=== PATIENT | male | born 1965 | race African-American/Black ===

== ENCOUNTER → 2017-03-01 | Outpatient (CLI) | payer BC, OTHER ==
[~2017-03-01] MED LIST: ACET-1256 PO; ACET325T95 PO; CLC100 PO; ENOX40IN SQ; GABA800T PO; LISI-461 PO; MISC-573; MORP1TAB12 PO; MORP30TA PO; OXYSR/10 PO; WARF2TAB PO
== END | disposition home or self-care (01) ==
LOC: C.RDSM 13:30
PROVIDERS: ATTEND Physical Medicine & Rehabilitation Sports Medicine
DX: Z96.651 Presence of right artificial knee joint (principal)

== ENCOUNTER 2017-04-02 20:40 | Inpatient (IN) | payer BC ==
[~2017-04-02] VITALS: Ht 182.9 cm; Wt 104.0 kg
[~2017-04-02 20:40] MED LIST changes: -ACET325T95 PO; -CLC100 PO; -MORP1TAB12 PO; -MORP30TA PO
[2017-04-02] MEDS ORDERED: ALBUT/IPRATROP 3MG/0.5MG NEB 3 ML VIAL INH STA (20:56)
--- NOTE | 2017-04-02 21:25 | DIAGNOSTIC IMAGING REPORT ---
CHEST ONE VIEW PORTABLE CLINICAL HISTORY: Respiratory distress. Dyspnea. COMPARISON STUDY: Chest radiograph August 14, 2015. FINDINGS: There is a large right pneumothorax. Right lung partial atelectasis is noted. This occupies greater than 50% of the right hemithorax. There is no left pneumothorax. Cardiac size is at the upper limits of normal. IMPRESSION: Large right pneumothorax. Findings discussed with Dr. Aguilar at time of dictation. Electronically signed by: Addi Gonzalez M.D. 04/02/2017 9:24 PM Dictated Date/Time: 04/02/2017 9:21 PM
[2017-04-02 21:34] LABS: BASO % 0.4 %; BASO ABS # 0.03 K/uL (0-0.2); COMPLETE YES; EOS % 3.7 %; HEMATOCRIT 36.5 % (42-52); IG% 0.1 %; LYMPH % 35.4 %; LYMPH ABS # 2.69 K/uL (1.2-3.4); MEAN CELL VOLUME 81.8 fL (80-100); MEAN CORPUSCULAR HEMOGLOBIN 28.3 pg (25-34); MEAN CORPUSCULAR HGB CONC 34.5 g/dl (32-36); MEAN PLATELET VOLUME 9.4 fL (7.4-10.4); MONO % 6.9 %; NEUT % 53.5 %; PLATELET COUNT 307 K/uL (130-400); RED BLOOD COUNT 4.46 M/uL (4.7-6.1); WHITE BLOOD COUNT 7.59 K/uL (4.8-10.8)
[2017-04-02 21:43] LABS: URINE APPEARANCE CLEAR (CLEAR); URINE BILIRUBIN NEG (NEG); URINE COLOR YELLOW; URINE NITRITE NEG (NEG); URINE SPECIFIC GRAVITY 1.022 (1.000-1.030); UROBILINOGEN NEG (NEG)
[2017-04-02 21:44] LABS: MANUAL MICROSCOPIC REQUIRED? NO; REVIEW REQ? NO
[2017-04-02 21:48] LABS: PROTHROMBIN TIME (PATIENT) 10.6 SECONDS (9.0-12.0)
[2017-04-02 21:49] LABS: ALT/SGPT 41 U/L (12-78); BLOOD UREA NITROGEN 16 mg/dl (7-18); BUN/CREATININE RATIO 14.8 (10-20); CALCIUM 8.3 mg/dl (8.5-10.1); CARBON DIOXIDE 25 mmol/L (21-32); CHLORIDE 108 mmol/L (98-107); GLUCOSE 94 mg/dl (70-99); SODIUM 140 mmol/L (136-145)
[2017-04-02] MEDS ORDERED: MORP30TA PO (22:01)
[2017-04-02 22:03] LABS: ALB/GLOB RATIO 0.9 (0.9-2); ALKALINE PHOSPHATASE 68 U/L (45-117); AST/SGOT 30 U/L (15-37); CKMB/CK RATIO 0.8 (0-3.0)
[2017-04-02] MEDS ORDERED: MORP1TAB12 PO (22:06)
[2017-04-02] MEDS ORDERED: FENTANYL CITRATE INJ 50 MCG/1 ML 2 ML VIAL ONE (23:40)
[2017-04-02] MEDS ORDERED: FENTANYL CITRATE INJ 50 MCG/1 ML 2 ML VIAL IV PRN (23:45)
[2017-04-03] MEDS ORDERED: LIDOCAINE HCL 1% 20 ML VIAL ONE (00:24)
[2017-04-03] MEDS ORDERED: HYDROmorphone INJ 1 MG/ML SYR IV PRN (01:00)
[2017-04-03] MEDS ORDERED: NURSING VERBAL MED ORDER SCH (01:15)
--- NOTE | 2017-04-03 01:17 | DIAGNOSTIC IMAGING REPORT ---
ADDENDUM ADDENDUM: There is a small right apical pneumothorax. Electronically signed by: Armando Perry M.D. 04/03/2017 9:02 AM Dictated Date/Time: 04/03/2017 9:01 AM ORIGINAL REPORT SINGLE VIEW CHEST CLINICAL HISTORY: Status post chest tube placement. FINDINGS: An AP, portable, upright chest radiograph is compared to study dated 04/02/2017. The examination is degraded by portable technique and patient rotation. The heart is mildly enlarged and there is atherosclerotic calcification of the thoracic aorta. The pulmonary vasculature is noncongested. A right-sided chest tube has been placed. No residual pneumothorax is identified. Pleural effusion and atelectasis is seen at the right lung base. The left lung is grossly clear. The bony thorax is grossly intact. Mild subcutaneous emphysema is present along the right chest wall. IMPRESSION: 1. A right-sided chest tube has been placed. No residual right pneumothorax is seen. 2. There is a trace right pleural effusion with right basilar atelectasis. 3. The left lung appears clear. Electronically signed by: Armando Perry M.D. 04/03/2017 1:16 AM Dictated Date/Time: 04/03/2017 1:14 AM
[2017-04-03] MEDS ORDERED: OXYCODONE/ACETAMINOPHEN 5-325 TAB PO PRN (01:45)
[2017-04-03 01:50] VITALS: Ht 182.9 cm; Wt 104.0 kg
[2017-04-03 01:58] VITALS: BP 127/80; PULSE 73; TEMP 36.8; O2SAT 96
--- NOTE | 2017-04-03 03:08 | EMERGENCY ROOM VISIT NOTE ---
History Report prepared by Toyin: Carlota Peng Under the Supervision of: Dr. Charanjit Aguilar M.D. First contact with patient: 20:51 Chief Complaint: RESPIRATORY PROBLEMS Stated Complaint: HARD TO BREATH History of Present Illness The patient is a 52 year old male who presents to the Emergency Room with complaints of constant respiratory problems beginning 1 week ago. 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 He reports having pain in the epigastric region and feels as if "there is something stuck in his chest." He states that he took Robitussin for his pain to no relief. The patient states that he had diarrhea twice. He denies any recent travel. He reports no family history of heart problems, lung problems, or clots. The patient states that he takes Oxycodone and Gabapentin for knee and back pain, as well as Morphine for back pain. He also takes Lisinopril for hypertension. Pt denies LOC, headache, fevers, chills , diaphoresis, visual changes, neck pain, chest pain, nausea, vomiting, back pain, melena, hematochezia, numbness, weakness, lymphadenopathy, rash, or other complaints. Source of History: patient Onset: 1 week ago Position: other (global) Quality: other (respiratory problems) Timing: constant Associated Symptoms: + diarrhea Review of Systems See HPI for pertinent positives and negatives. A total of ten systems were reviewed and were otherwise negative. Past Medical & Surgical Medical Problems: (1) Herniated disc (2) Hypertension (3) Lumbar disc herniation with radiculopathy (4) Right knee DJD Surgical Problems: (1) S/P knee replacement Family History Sickle cell trait Social History Smoking Status: Former Smoker Marital Status: Housing Status: lives with family Current/Historical Medications Scheduled Gabapentin (Neurontin), 800 MG PO TID Lisinopril (Lisinopril), 10 MG PO QAM Morphine Sulfate (Morphine Sulfate Er), 30 MG PO Q12 Oxycodone HCl (Oxycontin), 10 MG PO BID Allergies Coded Allergies: No Known Allergies (Unverified , 04/02/17) Physical Exam Vital Signs Date Time Temp Pulse Resp B/P (MAP) Pulse Ox O2 Delivery O2 Flow Rate FiO2 04/03/17 00:46 55 20 149/98 97 Nasal Cannula 3.0 04/03/17 00:10 52 04/02/17 22:22 63 21 131/87 100 Room Air 04/02/17 21:47 63 20 142/93 100 Non-Rebreather 15.0 04/02/17 21:01 97 Room Air 04/02/17 21:01 97 Room Air 04/02/17 21:01 97 Room Air 04/02/17 20:59 73 04/02/17 20:42 36.6 77 18 158/93 96 Room Air Physical Exam GENERAL: Awake, alert, well-appearing, in no distress HENT: Normocephalic, atraumatic. Oropharynx unremarkable. EYES: Normal conjunctiva. Sclera non-icteric. NECK: Supple. No nuchal rigidity. FROM. No JVD. RESPIRATORY: Clear to auscultation. CARDIAC: Regular rate, normal rhythm. Extremities warm and well perfused. Pulses equal. ABDOMEN: Soft, non-distended. Epigastric tenderness. Low anterior rib tenderness. No rebound or guarding. No masses. RECTAL: Deferred. MUSCULOSKELETAL: Chest examination reveals no tenderness. The back is symmetrical on inspection without obvious abnormality. There is no CVA tenderness to palpation. No joint edema. LOWER EXTREMITIES: Calves are equal size bilaterally and non-tender. No edema. No discoloration. NEURO: Normal sensorium. No sensory or motor deficits noted. SKIN: No rash or jaundice noted. Medical Decision & Procedures ER Provider Diagnostic Interpretation: X-ray: Per my interpretation, radiologist review. CHEST ONE VIEW PORTABLE CLINICAL HISTORY: Respiratory distress. Dyspnea. COMPARISON STUDY: Chest radiograph August 14, 2015. FINDINGS: There is a large right pneumothorax. Right lung partial atelectasis is noted. This occupies greater than 50% of the right hemithorax. There is no left pneumothorax. Cardiac size is at the upper limits of normal. IMPRESSION: Large right pneumothorax. Findings discussed with Dr. Aguilar at time of dictation. Electronically signed by: Addi Gonzalez M.D. 04/02/2017 9:24 PM Dictated Date/Time: 04/02/2017 9:21 PM X-ray: Per my interpretation, radiologist review. SINGLE VIEW CHEST CLINICAL HISTORY: Status post chest tube placement. FINDINGS: An AP, portable, upright chest radiograph is compared to study dated 04/02/2017. The examination is degraded by portable technique and patient rotation. The heart is mildly enlarged and there is atherosclerotic calcification of the thoracic aorta. The pulmonary vasculature is noncongested. A right-sided chest tube has been placed. No residual pneumothorax is identified. Pleural effusion and atelectasis is seen at the right lung base. The left lung is grossly clear. The bony thorax is grossly intact. Mild subcutaneous emphysema is present along the right chest wall. IMPRESSION: 1. A right-sided chest tube has been placed. No residual right pneumothorax is seen. 2. There is a trace right pleural effusion with right basilar atelectasis. 3. The left lung appears clear. Electronically signed by: Armando Perry M.D. 04/03/2017 1:16 AM Dictated Date/Time: 04/03/2017 1:14 AM Laboratory Results 04/02/17 21:17 Red Blood Count 4.46, Mean Corpuscular Volume 81.8, Mean Corpuscular Hemoglobin 28.3, Mean Corpuscular Hemoglobin Concent 34.5, Mean Platelet Volume 9.4, Neutrophils (%) (Auto) 53.5, Lymphocytes (%) (Auto) 35.4, Monocytes (%) (Auto) 6.9, Eosinophils (%) (Auto) 3.7, Basophils (%) (Auto) 0.4, Neutrophils # (Auto) 4.06, Lymphocytes # (Auto) 2.69, Monocytes # (Auto) 0.52, Eosinophils # (Auto) 0.28, Basophils # (Auto) 0.03 04/02/17 21:17 Test 04/02/17 21:17 04/02/17 21:30 White Blood Count 7.59 K/uL (4.8-10.8) Red Blood Count 4.46 M/uL (4.7-6.1) Hemoglobin 12.6 g/dL (14.0-18.0) Hematocrit 36.5 % (42-52) Mean Corpuscular Volume 81.8 fL (80-100) Mean Corpuscular Hemoglobin 28.3 pg (25-34) Mean Corpuscular Hemoglobin Concent 34.5 g/dl (32-36) Platelet Count 307 K/uL (130-400) Mean Platelet Volume 9.4 fL (7.4-10.4) Neutrophils (%) (Auto) 53.5 % Lymphocytes (%) (Auto) 35.4 % Monocytes (%) (Auto) 6.9 % Eosinophils (%) (Auto) 3.7 % Basophils (%) (Auto) 0.4 % Neutrophils # (Auto) 4.06 K/uL (1.4-6.5) Lymphocytes # (Auto) 2.69 K/uL (1.2-3.4) Monocytes # (Auto) 0.52 K/uL (0.11-0.59) Eosinophils # (Auto) 0.28 K/uL (0-0.5) Basophils # (Auto) 0.03 K/uL (0-0.2) RDW Standard Deviation 40.9 fL (36.4-46.3) RDW Coefficient of Variation 13.5 % (11.5-14.5) Immature Granulocyte % (Auto) 0.1 % Immature Granulocyte # (Auto) 0.01 K/uL (0.00-0.02) Prothrombin Time 10.6 SECONDS (9.0-12.0) Prothromb Time International Ratio 1.0 (0.9-1.1) Activated Partial Thromboplast Time 24.7 SECONDS (21.0-31.0) Partial Thromboplastin Ratio 1.0 Anion Gap 7.0 mmol/L (3-11) Est Creatinine Clear Calc Drug Dose 100.2 ml/min Estimated GFR () 90.2 Estimated GFR (Non- 77.9 BUN/Creatinine Ratio 14.8 (10-20) Calcium Level 8.3 mg/dl (8.5-10.1) Total Bilirubin 0.2 mg/dl (0.2-1) Aspartate Amino Transf (AST/SGOT) 30 U/L (15-37) Alanine Aminotransferase (ALT/SGPT) 41 U/L (12-78) Alkaline Phosphatase 68 U/L (45-117) Total Creatine Kinase 1009 U/L (39-308) Creatine Kinase MB 8.4 ng/ml (0.5-3.6) Creatine Kinase MB Ratio 0.8 (0-3.0) Troponin I < 0.015 ng/ml (0-0.045) Pro-B-Type Natriuretic Peptide 67 pg/ml (0-900) Total Protein 7.3 gm/dl (6.4-8.2) Albumin 3.5 gm/dl (3.4-5.0) Globulin 3.8 gm/dl (2.5-4.0) Albumin/Globulin Ratio 0.9 (0.9-2) Lipase 82 U/L (73-393) Urine Color YELLOW Urine Appearance CLEAR (CLEAR) Urine pH 5.0 (4.5-7.5) Urine Specific [place] 1.022 (1.000-1.030) Urine Protein NEG (NEG) Urine Glucose (UA) NEG (NEG) Urine Ketones NEG (NEG) Urine Occult Blood NEG (NEG) Urine Nitrite NEG (NEG) Urine Bilirubin NEG (NEG) Urine Urobilinogen NEG (NEG) Urine Leukocyte Esterase NEG (NEG) Laboratory results reviewed by me Medications Administered Medications (Trade) Dose Ordered Sig/[facility] Route Start Time Stop Time Status Last Admin Dose Admin Fentanyl Citrate (Fentanyl Inj) 100 mcg Q15M PRN IV 04/02/17 23:45 04/16/17 23:44 04/03/17 00:44 100 MCG Fentanyl Citrate (Fentanyl Inj) 100 mcg STK-MED ONCE .ROUTE 04/02/17 23:40 04/02/17 23:41 DC 04/02/17 00:10 100 MCG Hydromorphone HCl (Dilaudid Inj) 1 mg Q15M PRN IV 04/03/17 01:00 04/03/17 02:07 DC 04/03/17 00:57 1 MG Procedure Tube Thoracostomy Indication: Pneumothorax Written consent was obtained after the risks and benefits were explained, including but not limited to cardiac/liver/lung injury, bleeding, scarring, infection, pain, and bone/joint/nerve damage. At this time, the risks of the procedure are less than the risks of NOT performing the procedure. A time out was taken and the correct patient and site identified. The patient was prepped and draped in the standard surgical fashion. 1% lidocaine without epinephrine was infused over the right fifth intercostal space into the subcutaneous tissue. A 3 cm incision was made transversely in the mid axillary line over the fifth intercostal rib. Blunt dissection was done with a Julieta clamp to the area of the intercostal muscles; 1% lidocaine again was used for anesthesia in intercostal muscle and subpleural space. Blunt dissection was then done with the Julieta clamps into the pleural cavity over the rib. A brown of air was noted upon entering the pleural cavity. The pleural cavity was digitally inspected to confirm that the pleural cavity had been entered. A 28 Chinese thoracostomy tube was inserted in the superior/posterior portion of the pleural space. 1-0 silk suture was used to approximate the skin above the thoracostomy tube and then used to secure the thoracostomy tube. An occlusive dressing was then placed and the thoracostomy tube was hooked to the Pleur-evac suction. The patient tolerated the procedure well without complications. A postoperative x-ray was then performed which showed the thoracostomy tube in the correct position. ECG Indication: SOB/dyspnea Rate (beats per minute): 68 Rhythm: normal sinus Findings: no acute ischemic change, no ectopy ED Course 2054: The patient was evaluated in room C4. A complete history and physical exam was performed. 2055: Ordered Duoneb 3 ml INH. 2339: Ordered Fentanyl Inj 100 mcg. 2344: Ordered Fentanyl Inj 100 mcg IV. 23: Ordered Lidocaine HCl 20 ml. 99: Ordered Dilaudid Inj 1 mg IV. 104: Discussed the patient's case with Dr. Mahajan. The patient will be evaluated for further treatment and disposition. Medical Decision Medication Reconciliation: I attest that I have personally reviewed the patient' s current medication list Blood pressure screening: Patient was found to have an elevated blood pressure and was referred to their primary doctor for recheck and further treatment. Triage Nursing notes reviewed. The patient's presentation and history were concerning for breathing difficulty. Etiologies such as pneumonia, COPD, reactive airway disease, CHF, cardiac ischemia, pulmonary embolism, pneumothorax, musculoskeletal, infections, gastrointestinal, as well as others were entertained. Patient was evaluated. He noted difficulty breathing. His ECG was unremarkable. A portable chest x-ray was performed and revealed a right-sided pneumothorax. The patient has no prior history. He is hemodynamically stable. He was placed on a nonrebreather. The patient's blood work was unremarkable except for an elevation of his total CK. The patient was consented for chest tube placement. No one was internal salesperson for thoracic surgery this evening and I discussed proceeding with a chest tube. The patient was in agreement. This was performed as above and went very smoothly. There was a slight brown of air after the chest cavity was entered. The chest tube was placed in the standard fashion without a trocar. This was secured and dressed. The patient did receive fentanyl and Dilaudid for symptom control. He had some discomfort with lung re-expansion. Post procedure chest x-ray revealed the tube in good position. I did consult with general surgery, Dr. Mahajan as the patient will need to be admitted to the hospital. He did agree. The case discussed and diagnostics were reviewed including his elevated CK. He did admit the patient for further management of his spontaneous pneumothorax. Consults Time Called: 9 Consulting Physician: Dr. Scherer Returned Call: [phone] Discussed the patient's case. The patient will be evaluated for further treatment and disposition. Impression Primary Impression: Pneumothorax on right Additional Impression: Elevated creatine kinase Scribe Attestation The scribe's documentation has been prepared under my direction and personally reviewed by me in its entirety. I confirm that the note above accurately reflects all work, treatment, procedures, and medical decision making performed by me. Departure Information Dispostion Being Evaluated By Hospitalist Referrals No Doctor, Assigned (PCP) Patient Instructions My [facility] Problem Qualifiers
[2017-04-03] MEDS: MoRPHine SULFATE 4 MG/ML 1 ML CARP\\VIAL IV PRN ×4 (03:17→10:11)
[2017-04-03 07:26] VITALS: BP 127/76; PULSE 65; TEMP 36.6; O2SAT 95
[2017-04-03] MEDS: MoRPHine SULFATE CR 15 MG TAB (MS CONTIN) PO SCH ×2 (08:35→20:10)
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
[2017-04-03] MEDS ORDERED: LISINOPRIL 10 MG TAB PO SCH (09:00)
[2017-04-03] MEDS ORDERED: MoRPHine SULFATE CR 15 MG TAB (MS CONTIN) PO SCH (09:00)
[2017-04-03] MEDS ORDERED: GABAPENTIN 800 MG TAB PO SCH (09:00)
--- NOTE | 2017-04-03 09:02 | DIAGNOSTIC IMAGING REPORT ---
SINGLE VIEW CHEST CLINICAL HISTORY: Pneumothorax and chest tube. FINDINGS: An AP, portable, upright chest radiograph is compared to study performed earlier the same day 04/03/2017. The examination is degraded by portable technique and patient rotation. The heart is mildly enlarged and there is atherosclerotic calcification of the thoracic aorta. The pulmonary vasculature is noncongested. A right-sided chest tube has been placed. There is a small right apical pneumothorax. Pleural effusion and atelectasis are noted at the right lung base. There is left basilar atelectasis. The left lung is otherwise grossly clear. The bony thorax is grossly intact. Mild subcutaneous emphysema is present along the right chest wall. IMPRESSION: 1. A right-sided chest tube is unchanged in position. A small right atypical pneumothorax persists. 2. There is a trace right pleural effusion and bibasilar atelectasis. 3. The left lung appears clear. Electronically signed by: Armando Perry M.D. 04/03/2017 9:01 AM Dictated Date/Time: 04/03/2017 8:59 AM
[2017-04-03] MEDS ORDERED: NURSING VERBAL MED ORDER ONE (10:15)
[2017-04-03] MEDS ORDERED: KETOROLAC TROMETHAMINE 30 MG/ML VIAL ONE (10:17)
[2017-04-03] MEDS ORDERED: DIAZEPAM 5MG TAB PO PRN (10:30)
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
--- NOTE | 2017-04-03 11:21 | DIAGNOSTIC IMAGING REPORT ---
CT SCAN OF THE CHEST WITHOUT IV CONTRAST CLINICAL HISTORY: Pneumothorax and chest tube. Assess for bullous change. COMPARISON STUDY: Chest x-rays dated 04/03/2017 and 08/14/2015. TECHNIQUE: CT scan of the thorax was performed from the thoracic inlet to the upper abdomen. Images are reviewed in the axial, sagittal, and coronal planes. IV contrast was not administered for this examination as per the referring clinician. CT DOSE: 1083.12 mGy.cm FINDINGS: Thyroid: Imaged portions of the thyroid gland are normal in size and attenuation. Thoracic aorta: The thoracic aorta is normal in caliber and demonstrates standard 3-vessel arch anatomy. Heart: The heart is normal in size and without pericardial effusion. There are coronary artery calcifications. The pulmonary trunk is normal in caliber. Lungs and pleural spaces: A chest tube is present at the right apex. This enters between the right lateral fourth and fifth ribs, and there is associated subcutaneous emphysema along the right chest wall. There is emphysema with biapical bullous change. There is a small residual anterior right apical pneumothorax seen on image #114. A cavity at the right apex is indeterminant and may represent pneumothorax versus a bulla. A pneumothorax is favored, as there has been a radiographic change from the 2015 chest x-ray. Patchy airspace consolidation is identified in the right upper and right middle lobes. There is segmental atelectasis at the right lung base. Subsegmental atelectasis is seen at the left lung base. There is a trace right pleural effusion. The trachea and central airways are clear. Mediastinum: There is no mediastinal lymphadenopathy. Lynn: Not well assessed without IV contrast. Axillae: There is no axillary lymphadenopathy. Upper abdomen: Calcified gallstones are noted. Scattered subcentimeter hepatic hypodensities likely represent cysts but are too small for definitive characterization. Diverticula are noted in the partially imaged left colon. Skeletal structures: No lytic or blastic bony lesions are seen. Degenerative change is seen in the shoulders and thoracic spine. IMPRESSION: 1. Emphysema with biapical bullae. 2. A chest tube is present at the right apex. There is a small anterior right apical pneumothorax identified. An air cavity at the right apex could represent a bulla versus pneumothorax. A small pneumothorax is favored, as this represents a clear radiographic change when compared to the 08/14/2015 examination. 3. There is patchy groundglass consolidation seen in the right upper and right middle lobes. This could represent a mild infectious/inflammatory pneumonitis versus reexpansion edema. Clinical correlation will be required. 4. Segmental atelectasis is seen at the right lung base and there is subsegmental atelectasis at the left lung base. A trace right pleural effusion is noted. 5. Cholelithiasis. Electronically signed by: Armando Perry M.D. 04/03/2017 11:20 AM Dictated Date/Time: 04/03/2017 11:12 AM
[2017-04-03] MEDS: OXYCODONE HCL IR 5 MG TAB (IMMEDIATE RELEASE) PO PRN ×2 (13:37→23:37)
[2017-04-03] MEDS: GABAPENTIN 800 MG TAB PO SCH ×2 (13:38→21:00)
[2017-04-03] MEDS: ACETAMINOPHEN IV 1,000 MG in EMPTY BAG 0 ML IV SCH ×2 (13:39→21:49)
[2017-04-03 15:12] VITALS: BP 124/80; PULSE 68; TEMP 36.9; O2SAT 96
[2017-04-03] MEDS: KETOROLAC TROMETHAMINE 30 MG/ML VIAL IV PRN (16:28)
[2017-04-03 20:03] VITALS: BP 116/75; PULSE 73; TEMP 36.9; O2SAT 94
[2017-04-03 22:40] VITALS: BP 125/72; PULSE 60; TEMP 36.9; O2SAT 95
[2017-04-04] VITALS (9 sets, daily range): BP systolic 105–133; BP diastolic 66–91; PULSE 43–80; TEMP 36.3–37.1; O2SAT 93–98
[2017-04-04] MEDS: KETOROLAC TROMETHAMINE 30 MG/ML VIAL IV PRN ×2 (00:20→07:11)
[2017-04-04] MEDS: ACETAMINOPHEN IV 1,000 MG in EMPTY BAG 0 ML IV SCH ×3 (05:43→21:51)
[2017-04-04] MEDS: MoRPHine SULFATE CR 15 MG TAB (MS CONTIN) PO SCH ×2 (07:57→20:07)
[2017-04-04] MEDS: GABAPENTIN 800 MG TAB PO SCH ×3 (08:42→21:00)
--- NOTE | 2017-04-04 10:20 | Progress Note ---
Progress Note Date of Service Apr 04, 2017. Progress Note I had a long talk with Mr. Lai this morning. I also had a long conversation with the patient's over the telephone. His CT scan shows a large bulla in fairly localized bullous disease in the right apex. He has a very small air leak this morning. It was larger yesterday. We had a long discussion about management. My personal opinion and in a 52-year-old male with localized disease was apex is that a minimally invasive approach and excising these bulla would be our best option. We did discuss removing his chest tube and sending him home with his air leak has been resolved for 24-48 hours. I told him it would more likely be tomorrow or the day after the procedure his tube out. Taken to the operating room is a good chance we can get his tube out tomorrow and get him home. He discussed this in detail with his and with me would like to proceed with a thoracoscopic resection of his right apical blebs. We' re going to proceed with this later today. I manipulated his pain medicines yesterday and he has responded well with much less pain than he did yesterday. We will institute DVT prophylaxis.
[2017-04-04] MEDS ORDERED: MoRPHine SULFATE 4 MG/ML 1 ML CARP\\VIAL IM PRN (10:30)
[2017-04-04] MEDS ORDERED: LARYING-O-JET KIT (LTA) ONE ×2 (11:44)
[2017-04-04] MEDS ORDERED: PROPOFOL IV EMULSION 10 MG/ML 20 ML VIAL IV ONE ×2 (11:44→13:04)
[2017-04-04] MEDS ORDERED: LIDOCAINE HCL 2% 2 ML VIAL (20MG/ML) ONE (11:44)
[2017-04-04] MEDS ORDERED: ROCURONIUM BROMIDE 10 MG/ML 5 ML VIAL ONE ×2 (11:44→12:59)
[2017-04-04] MEDS ORDERED: ONDANSETRON INJ 2 MG/ML 2 ML VIAL ONE (11:44)
[2017-04-04] MEDS ORDERED: ONDANSETRON INJ 2 MG/ML 2 ML VIAL IV PRN ×2 (11:45→13:45)
[2017-04-04] MEDS ORDERED: MIDAZOLAM HCL 1 MG/ML 2ML VIAL ONE (11:45)
[2017-04-04] MEDS ORDERED: FENTANYL CITRATE INJ 50 MCG/1 ML 2 ML VIAL ONE (11:45)
[2017-04-04] MEDS ORDERED: EpHEDrine SULFATE INJ 50 MG/ML AMP IV PRN (11:45)
[2017-04-04] MEDS ORDERED: ATROPINE SULFATE 0.1 MG/ML 5ML SYR IV PRN (11:45)
[2017-04-04] MEDS ORDERED: SODIUM CHLORIDE 0.9% PF 50 ML VIAL ONE (12:02)
[2017-04-04] MEDS ORDERED: BUPIVACAINE LIPOSOME 1/3% 266 MG/20 ML VIAL INFIL ONE (12:02)
[2017-04-04] MEDS ORDERED: SUCCINYLCHOLINE CHLORIDE 20 MG/ML 10 ML VIAL IV ONE (12:59)
[2017-04-04] MEDS ORDERED: EpHEDrine SULFATE 50MG/5ML SYR ONE (12:59)
[2017-04-04] MEDS ORDERED: DEXAMETHASONE SOD INJ 4 MG/ML VIAL ONE (12:59)
[2017-04-04] MEDS ORDERED: PHENYLEPHRINE 100MCG/ML 5ML SYR ONE (12:59)
[2017-04-04] MEDS ORDERED: CEFAZOLIN SOD 1 GM VIAL ONE (13:02)
[2017-04-04] MEDS ORDERED: NEOSTIGMINE METHYLSULFATE 5 MG/5 ML SYR ONE (13:07)
[2017-04-04] MEDS ORDERED: GLYCOPYRROLATE INJ 0.2 MG/ML VIAL ONE (13:07)
[2017-04-04] MEDS: FENTANYL CITRATE INJ 50 MCG/1 ML 2 ML VIAL IV PRN ×4 (13:50→14:05)
[2017-04-04] MEDS: HYDROmorphone INJ 1 MG/ML SYR IV PRN ×4 (14:10→14:25)
--- NOTE | 2017-04-04 14:11 | DIAGNOSTIC IMAGING REPORT ---
CHEST ONE VIEW PORTABLE CLINICAL HISTORY: s/p bleb resection COMPARISON STUDY: 04/03/2017 FINDINGS: The right-sided chest tube is positioned more laterally. There is no pneumothorax. There is trace subcutaneous emphysema on the right. The heart is the upper limits of normal in size. There is no focal pulmonary consolidation. In the area of the previously identified loculated right apical pneumothorax versus apical bleb, there is soft tissue opacity. This likely represents fluid. IMPRESSION: Interval development of presumed fluid within the loculated right apical pneumothorax versus apical bleb. No evidence of acute parenchymal consolidation. Electronically signed by: Aleksandar Cruz M.D. 04/04/2017 2:10 PM Dictated Date/Time: 04/04/2017 2:01 PM
--- NOTE | 2017-04-04 14:15 | Anesthesiology Progress Note ---
Anesthesia Post Op Note Date & Time Apr 04, 2017 at 14:14 Vital Signs Pain Intensity: 5 Vital Signs Past 12 Hours Date Time Temp Pulse Resp B/P (MAP) Pulse Ox O2 Delivery O2 Flow Rate FiO2 04/04/17 14:00 65 17 131/79 100 Mask 10 04/04/17 13:54 36.3 69 14 124/76 99 Mask 10 04/04/17 07:45 Room Air 04/04/17 06:58 36.4 43 17 133/91 (105) 97 Room Air 04/04/17 04:00 36.8 63 20 105/71 (82) 93 Room Air Notes Mental Status: alert / awake / arousable, participated in evaluation Pt Amnestic to Procedure: Yes Nausea / Vomiting: adequately controlled Pain: adequately controlled, improving with treatment Airway Patency, RR, SpO2: stable & adequate BP & HR: stable & adequate Hydration State: stable & adequate Anesthetic Complications: no major complications apparent
--- NOTE | 2017-04-04 15:04 | [facility] Operative Report ---
Operative Report Date of Service Apr 04, 2017. Operative Report Preoperative diagnosis: Right apical blebs with spontaneous pneumothorax Postoperative diagnosis: Same Procedure: Right thoracoscopy with wedge resection right apical blebs Surgeon: Mike Braga M.D. FACS Travograph Operator surgeon: Giancarlo ALBRIGHT Anesthesia:Gen. anesthesia with endotracheal intubation using a single lumen tube Procedure: The patient was brought to the operating room placed in the supine position. Gen. anesthesia was induced and endotracheal intubation was performed with a single-lumen tube. Patient was then turned in the left lateral decubitus position carefully to avoid strain on his brachial plexus or his bony prominences. Appropriate timeout was called and prophylactic antibiotics given. His chest tube was removed from the right side and he was prepped and draped in usual sterile fashion. A 5 mm port was placed to the tip of the scapula area and upon entering the pleural cavity to be seen and there were no adhesions inferiorly but there was a band of adhesions from the apical blebs to the chest wall. Another 5 mm port was placed at about the fourth interspace and then a 12 mm port was placed seventh interspace anteriorly. CO2 was insufflated. I then grasped the lung with a a lung clamp and retracted and used the Harmonic scalpel to divide the adhesion. I was then able to pull the upper aspect of the apex down. An Endo ASHWINI stapler was placed through the 12 mm port and was fired several times removing generous portion of the the right upper lobe. This included the apical blebs The patient had small blebs diffusely that were not leaking air. These were located along the edge of the middle lobe as well as the upper lobe. There was no other adhesions and no masses noted. 266 mg Exparel mixed in 60 mL total with normal saline was injected from the second to the 11th interspace for an intercostal block under thoracoscopic guidance. The chest was filled with warm saline and the lung inflated and we saw no evidence of an air leak. A 24 Slovenian chest tube was placed in the anterior inferior thoracoscopy port and directed towards the apex. It was held in place with heavy silk suture. The 5 mm port incisions were closed with 4-0 Monocryl in a running continuous fashion. Patient had no air leak at the conclusion of the case. He tolerated it well. Transported to the postanesthesia care unit in stable condition. I attest to the content of the Intraoperative Record and any orders documented therein. Any exceptions are noted below.
[2017-04-04] MEDS: D5W AND 1/2NSS 1,000 ML IV SCH (15:12)
[2017-04-04] MEDS: DOCUSATE SODIUM 100 MG CAP PO SCH (21:00)
[2017-04-04] MEDS: METOCLOPRAMIDE HCL INJ 5 MG/ML 2 ML VIAL IV. SCH (22:16)
[2017-04-04] MEDS: CEFAZOLIN IV 2,000 MG in DEXTROSE 5% 50ML 100 ML IV SCH (22:16)
[2017-04-05] MEDS: D5W AND 1/2NSS 1,000 ML IV SCH (00:46)
[2017-04-05 03:06] VITALS: BP 109/67; PULSE 67; TEMP 36.8; O2SAT 99
[2017-04-05] MEDS: OXYCODONE HCL IR 5 MG TAB (IMMEDIATE RELEASE) PO PRN (04:35)
[2017-04-05] MEDS: KETOROLAC TROMETHAMINE 30 MG/ML VIAL IV PRN (05:24)
[2017-04-05] MEDS: METOCLOPRAMIDE HCL INJ 5 MG/ML 2 ML VIAL IV. SCH (05:58)
[2017-04-05] MEDS: ACETAMINOPHEN IV 1,000 MG in EMPTY BAG 0 ML IV SCH (06:05)
[2017-04-05] MEDS ORDERED: CLC100 PO (06:26)
[2017-04-05] MEDS: CEFAZOLIN IV 2,000 MG in DEXTROSE 5% 50ML 100 ML IV SCH (06:33)
[2017-04-05] MEDS ORDERED: OXYSR/10 PO (06:39)
[2017-04-05] MEDS ORDERED: ACET325T95 PO (06:39)
--- NOTE | 2017-04-05 06:43 | Discharge Instructions ---
Discharge Instructions Date of Service Apr 05, 2017. Admission Reason for Admission: Pneumothorax Discharge Discharge Diagnosis / Problem: Pneumothorax Discharge Goals Goal(s): Decrease discomfort, Improve function Activity Recommendations Activity Limitations: as noted below Lifting Limitations: none 1. Do not fly or SCUBA dive until cleared to do so by Dr. Braga. . Instructions / Follow-Up Instructions / Follow-Up 1. You may remove dressing on Tuesday, April 08, 2017, and shower thereafter. No tub baths. 2. Office appointment with Dr. Braga in 1 week. Office will call you with date and time and date of appointment. Go to hospital 1 hour before your appointment to have a chest x-ray taken. Current Hospital Diet Patient's current hospital diet: Regular Diet Discharge Diet Recommended Diet: Regular Diet Procedures Procedures Performed: Right Video-Assisted Thoracoscopy with Apical Bleb Resection Pending Studies Studies pending at discharge: no Medical Emergencies . Who to Call and When: Medical Emergencies: If at any time you feel your situation is an emergency, please call 911 immediately. . Non-Emergent Contact Non-Emergency issues call your: Surgeon Call Non-Emergent contact if: you have a fever, your pain is not controlled, wound has increased drainage . "Provider Documentation" section prepared by Kaleb Royal. . VTE Core Measure Inpt VTE Proph given/why not?: Enoxaparin (Lovenox)SQ
[2017-04-05 07:15] VITALS: O2SAT 99
[2017-04-05 07:37] VITALS: BP 118/75; PULSE 60; TEMP 36.8; O2SAT 96
--- NOTE | 2017-04-05 07:56 | Discharge Summary ---
Discharge Summary Date of Service Apr 05, 2017. Discharge Summary Admission Date: Apr 03, 2017 at 01:17 Discharge Date: Apr 05, 2017 Discharge Disposition: Home Principal Diagnosis: Right Spontaneous Pneumothorax Procedures: 1. Right Chest Tube Insertion 2. Right VATS with apical bleb stapling Medication Reconciliation New Medications: Acetaminophen (Tylenol) 325 Mg Tab 650 MG PO Q6H PRN for Pain for 30 Days, 0 Refills Docusate Sodium (Docusate Sodium) 100 Mg Cap 100 MG PO BID for 30 Days, #60 CAP 0 Refills Continued Medications: Gabapentin (Neurontin) 800 Mg Tab 800 MG PO TID, TAB Lisinopril (Lisinopril) 10 Mg Tab 10 MG PO QAM Morphine Sulfate (Morphine Sulfate Er) 30 Mg Tab 30 MG PO Q12, #60 Oxycodone HCl (Oxycontin) 10 Mg Tabcr 10 MG PO BID, #10 0 Refills (This prescription has been renewed) Discharge Exam Review of Systems: Constitutional: No fever, No chills Respiratory: No cough, No shortness of breath Cardiovascular: No chest pain Abdomen: No pain, No nausea, No vomiting Physical Exam: General Appearance: WD/WN, no apparent distress Respiratory/Chest: lungs clear, normal breath sounds, no respiratory distress, no accessory muscle use Cardiovascular: regular rate, rhythm Abdomen / GI: soft Extremities: no calf tenderness Neurologic/Psychiatric: alert, oriented x 3 Hospital Course 52 year old male with right spontaneous pneumothorax -chest tube placed by ED physician on (04/03/17) -CT scan of chest performed (04/03/17): -bullous lung disease noted -due to CT scan finding, pt. taken to OR on (04/04/17) for Right VATS with apical bleb stapling -post-op course uneventful: -no air leak noted post-op -pt. ambulating without difficulty -pt. not requiring oxygen -small apical PTX noted on CXR on POD#1: -CT pulled POD#1 with small right apical PTX noted on post pull CXR -pt. deemed stable for d/c following chest removal OTHER -lovenox utilized for DVT prevention -pt. will follow-up with Dr. Braga in office in 1 week with repeat CXR -pt. takes chronic pain meds: -at time of d/c he was given rx. for 5 day supply of oxycodone 10 mg po bid -pt. instructed he should seek follow-up with PCP regarding renewal of prison pain meds Total Time Spent: Greater than 30 minutes This includes examination of the patient, discharge planning, medication reconciliation, and communication with other providers. Discharge Instructions Please refer to the electronic Patient Visit Report (Discharge Instructions) for additional information. Follow-Up 1. Dr. Braga in 1 week with repeat CXR Additional Copies To Rox Mattson M.D.
[2017-04-05 08:16] VITALS: BP 118/75; PULSE 60; TEMP 36.8; O2SAT 96
[2017-04-05] MEDS: GABAPENTIN 800 MG TAB PO SCH (08:25)
[2017-04-05] MEDS: MoRPHine SULFATE CR 15 MG TAB (MS CONTIN) PO SCH (08:25)
[2017-04-05] MEDS: DOCUSATE SODIUM 100 MG CAP PO SCH (08:25)
[2017-04-05] MEDS ORDERED: LISINOPRIL 10 MG TAB PO SCH (09:00)
[2017-04-05] MEDS ORDERED: ENOXAPARIN 40 MG/0.4 ML SYR SQ SCH (09:00)
--- NOTE | 2017-04-05 09:19 | DIAGNOSTIC IMAGING REPORT ---
SINGLE VIEW CHEST CLINICAL HISTORY: Chest tube removal. FINDINGS: An AP, portable, upright chest radiograph is compared to study performed earlier the same day 04/05/2017 and correlated with chest CT dated 04/03/2017. The examination is degraded by portable technique, motion artifact, and patient rotation. The heart is mildly enlarged and there is atherosclerotic calcification of the thoracic aorta. The pulmonary vasculature is noncongested. A right-sided chest tube has been removed. A small residual right apical pneumothorax persists. There is elevation right hemidiaphragm with mild persistent right basilar atelectasis. The left lung is grossly clear. The bony thorax is grossly intact. Trace subcutaneous emphysema is present along the right chest wall. IMPRESSION: 1. A right-sided chest tube has been removal. A small right apical pneumothorax persists. 2. Right basilar atelectasis is again noted. Electronically signed by: Armando Perry M.D. 04/05/2017 9:18 AM Dictated Date/Time: 04/05/2017 9:15 AM
--- NOTE | 2017-04-05 10:50 | DIAGNOSTIC IMAGING REPORT ---
SINGLE VIEW CHEST CLINICAL HISTORY: Pneumothorax and chest tube. Status post bleb resection. FINDINGS: An AP, portable, upright chest radiograph is compared to study performed earlier the same day 04/04/2017 and correlated with chest CT dated 04/03/2017. The examination is degraded by portable technique and patient rotation. The heart is mildly enlarged and there is atherosclerotic calcification of the thoracic aorta. The pulmonary vasculature is noncongested. A right-sided chest tube is unchanged in position. Suture material seen at the right apex and there is a small right apical pneumothorax. There is no large pleural effusion. Mild atelectasis at the right lung base is again noted. The left lung is grossly clear. The bony thorax is grossly intact. Mild subcutaneous emphysema is present along the right chest wall. IMPRESSION: 1. A right-sided chest tube is unchanged in position. Seizure which was present the right apex and there is a small persistent right apical pneumothorax. 2. Atelectasis is noted at the right lung base. Electronically signed by: Armando Perry M.D. 04/05/2017 10:49 AM Dictated Date/Time: 04/05/2017 10:47 AM
== END 2017-04-05 09:30 | disposition home or self-care (01) | DRG 201 ==
LOC: C.EDB 20:40 → C.MSW 04-03 01:17 → ENRESERV 04-03 01:23
PROVIDERS: ADMIT Surgery; ATTEND Surgery
PROC: 0W9930Z Drainage of Right Pleural Cavity with Drainage Device, Percutaneous Approach (ICD-10-PCS; 2017-04-02)
PROC: 0WP9X0Z Removal of Drainage Device from Right Pleural Cavity, External Approach (ICD-10-PCS; principal; 2017-04-04 12:00)
PROC: 0BBC8ZZ Excision of Right Upper Lung Lobe, Via Natural or Artificial Opening Endoscopic (ICD-10-PCS; principal; 2017-04-04 12:00)
DX: J93.83 Other pneumothorax (principal); I10 Essential (primary) hypertension; Z87.891 Personal history of nicotine dependence; J43.9 Emphysema, unspecified

== ENCOUNTER → 2017-04-12 | Outpatient (CLI) | payer BC ==
[~2017-04-12] MED LIST changes: -ACET-1256 PO; +ACET325T95 PO; +CLC100 PO; -ENOX40IN SQ; -MISC-573; +MORP1TAB12 PO; -WARF2TAB PO
--- NOTE | 2017-04-12 10:38 | DIAGNOSTIC IMAGING REPORT ---
CHEST 2 VIEWS ROUTINE HISTORY:52 [id number] COMPARISON: 04/05/2017. TECHNIQUE: Frontal and lateral views of the chest. FINDINGS: Cardiomediastinal and hilar silhouettes are within normal limits. Surgical sutures are seen in the right lung apex without residual pneumothorax. No pleural effusion or focal airspace consolidation. There is unchanged mild right hemidiaphragmatic elevation. Degenerative changes involve the AC joints bilaterally. IMPRESSION: Resolution of the previously noted right apical pneumothorax. No acute cardiopulmonary process. The above report was generated using voice recognition software. It may contain grammatical, syntax or spelling errors. Electronically signed by: Alcon Nguyễn 04/12/2017 10:37 AM Dictated Date/Time: 04/12/2017 10:36 AM
== END | disposition home or self-care (01) ==
LOC: C.RAD 09:54
PROVIDERS: ATTEND Surgery
DX: J93.9 Pneumothorax, unspecified (principal)

== ENCOUNTER → 2017-09-16 | Outpatient (CLI) | payer BC | END | disposition home or self-care (01) | LOC: C.RDSM 12:06 | PROVIDERS: ATTEND Physical Medicine & Rehabilitation Sports Medicine | DX: Z96.651 Presence of right artificial knee joint (principal) ==

== ENCOUNTER → 2018-01-04 | Outpatient (CLI) | payer BC ==
[~2018-01-04] MED LIST changes: -ACET325T95 PO; +TYLOTC325 PO
[2018-01-04 17:05] LABS: ALBUMIN 3.7 gm/dl (3.4-5.0); ALT/SGPT 41 U/L (12-78); AST/SGOT 32 U/L (15-37); BLOOD UREA NITROGEN 16 mg/dl (7-18); CALCIUM 8.6 mg/dl (8.5-10.1); CARBON DIOXIDE 27 mmol/L (21-32); CREATININE 1.14 mg/dl (0.60-1.40); GLUCOSE 72 mg/dl (70-99); POTASSIUM 3.9 mmol/L (3.5-5.1); SODIUM 138 mmol/L (136-145)
[2018-01-04 17:08] LABS: ALKALINE PHOSPHATASE 83 U/L (45-117); TOTAL PROTEIN 7.6 gm/dl (6.4-8.2)
== END | disposition home or self-care (01) ==
LOC: C.LABPBG 15:31
PROVIDERS: ATTEND Nurse Practitioner Family
DX: I10 Essential (primary) hypertension (principal)

== ENCOUNTER → 2018-01-31 | Outpatient (CLI) | payer BC ==
--- NOTE | 2018-01-31 16:06 | DIAGNOSTIC IMAGING REPORT ---
LUMBAR SPINE W/O CONTRAST HISTORY: Pain. LUMBAR RADICULOPATHY TECHNIQUE: Multiplanar multisequence MRI of the lumbar spine was performed without the use of contrast. COMPARISON: None. FINDINGS: For the purpose of the report the L5-S1 disc space will be located on axial image 27 of 30. Moderate degenerative disc change throughout the entire lumbar region. Persistent posterior bulging discs based on the sagittal images from L2 through S1. L1-L2: No significant central canal or neural foraminal narrowing. L2-L3: Moderate multifactorial narrowing of the spinal canal. This is unchanged from the prior study. Broad-based bulging disc. Hypertrophic change posterior elements. Moderate narrowing of the neuroforamina bilaterally. L3-L4: Mild broad-based disc herniation. Moderate hypertrophic change posterior elements. Mild transverse narrowing of the spinal canal area in moderate to rather significant narrowing of the neuroforamina bilaterally. These findings are unchanged. L4-L5: Broad-based right central disc herniation. Moderate to rather significant multifactorial narrowing of spinal canal. Significant narrowing of the neuroforamina bilaterally. These findings are unchanged. L5-S1: Mild broad-based disc herniation. This is somewhat improved from the prior exam. Impact upon the thecal sac is diminished. Considerable multifactorial narrowing of the left and to a lesser extent right neural foramina. These findings are similar. IMPRESSION: 1. Multilevel bulging disc components with moderate to rather significant compromise the neural foramina at all levels from L2 through S1. 2. Left central disc herniation L5-S1 slightly diminished in prominence the prior study. There continues to be significant narrowing of the left and to a somewhat lesser extent right neural foramina. 3. Moderate multilevel narrowing of the neuroforamina bilaterally. This Is unchanged from the prior exam. The above report was generated using voice recognition software. It may contain grammatical, syntax or spelling errors. Electronically signed by: Juan Manuel Cheema M.D. 01/31/2018 4:04 PM Dictated Date/Time: 01/31/2018 3:53 PM
== END | disposition home or self-care (01) ==
LOC: C.MRIBC 14:41
PROVIDERS: ATTEND Pain Medicine Interventional Pain Medicine
DX: M51.17 Intervertebral disc disorders with radiculopathy, lumbosacral region (principal)

== ENCOUNTER 2019-08-10 15:36 | Inpatient (IN) ==
[2019-08-10] MEDS ORDERED: ASPIRIN CHEW 324 MG PO STA (15:53)
[2019-08-10 16:15] LABS: Basophils # (auto) 0.01 K/uL (0-0.2); Basophils % (auto) 0.1 %; Eosinophils # (auto) 0.23 K/uL (0-0.5); Eosinophils % (auto) 2.8 %; Hematocrit (blood only) 37.6 % (42-52); Hemoglobin 12.9 g/dL (14.0-18.0); Immature Granulocytes # (auto) 0.02 K/uL (0.00-0.02); Immature Granulocytes % (auto) 0.2 %; Lymphocytes % (auto) 33.3 %; Mean Corpuscular Hemoglobin 28.9 pg (25-34); Mean Corpuscular Hgb Conc 34.3 g/dL (32-36); Mean Corpuscular Volume 84.1 fL (80-100); Mean Platelet Volume 9.8 fL (7.4-10.4); Monocytes # (auto) 0.46 K/uL (0.11-0.59); Monocytes % (auto) 5.7 %; Neutrophils # (auto) 4.69 K/uL (1.4-6.5); Neutrophils % (auto) 57.9 %; Platelet Count 311 K/uL (130-400); RDW Coefficient of Variation 13.3 % (11.5-14.5); RDW Standard Deviation 40.1 fL (36.4-46.3); Red Blood Count 4.47 M/uL (4.7-6.1); White Blood Count 8.11 K/uL (4.8-10.8)
[2019-08-10 16:27] LABS: Partial Thromboplastin Ratio 0.8; Partial Thromboplastin Time 22.6 Seconds (21.0-31.0); Prothrombin Time 10.6 Seconds (9.0-12.0)
[2019-08-10 16:37] LABS: Alanine Aminotransferase 36 U/L (12-78); Aspartate Aminotransferase 21 U/L (15-37); BUN Creatinine Ratio 11.5 (10-20); Blood Urea Nitrogen 10 mg/dl (7-18); Calcium 8.7 mg/dl (8.5-10.1); Carbon Dioxide 25 mmol/L (21-32); Chloride 106 mmol/L (98-107); Creatinine Clr Calc Pharmacy 129.9 ml/min; Est GFR (African American) 113.4; Est GFR (Non-African American) 97.9; Glucose 76 mg/dl (70-99); Lipase 60 U/L (73-393); Potassium 3.6 mmol/L (3.5-5.1); Sodium 138 mmol/L (136-145)
[2019-08-10 16:44] LABS: Albumin Globulin Ratio 1.1 (0.9-2); Alkaline Phosphatase 80 U/L (45-117); Bilirubin,Total 0.4 mg/dl (0.2-1); Creatine Kinase 671 U/L (39-308); Creatine Kinase MB 6.5 ng/ml (0.5-3.6); Globulin 3.5 gm/dl (2.5-4.0); Total Protein 7.5 gm/dl (6.4-8.2); Troponin I < 0.015 ng/ml (0-0.045)
[2019-08-10 16:51] LABS: D Dimer 1290 ug/L FEU (0-500)
--- NOTE | 2019-08-10 16:57 | XRay Report ---
XR chest 1V portable CLINICAL HISTORY: 54 years-old Male presenting with Chest Pain that began Tuesday, persistent. TECHNIQUE: Portable upright AP view of the chest was obtained. COMPARISON: 04/05/2017. FINDINGS: Cardiomediastinal silhouette normal. No focal opacity. Small to moderate left apical pneumothorax. No mediastinal shift to suggest tension. No pleural effusion. Osseous structures normal. Upper abdomen normal. IMPRESSION: 1. Small to moderate left pneumothorax. No evidence of tension at this time. The report will be called/faxed according to standard departmental protocol for a critical finding. Electronically signed by: Toribio Fenton M.D. 08/10/2019 4:56 PM
[2019-08-10] MEDS ORDERED: OPTIRAY 320 125ml IV PRN (17:13)
--- NOTE | 2019-08-10 17:26 | CT Scan Report ---
CT angio chest PE protocol CLINICAL HISTORY: 54 years-old Male presenting with shortness of breath, atypical chest pain, clinica l concern for pulmonary embolus. TECHNIQUE: Multidetector CT angiography of the chest was performed after administration of intravenou s contrast. 3-D volumetric and/or maximum intensity projection (MIP) images were subsequently reconst ructed for review. IV contrast: 119 mL of Optiray 320. One or more dose lowering techniques were used consistent with the principles of ALARA (as low as reasonably achievable), including automatic expos ure control, mA or kV adjustment to individual patient size, and/or use of iterative reconstruction. COMPARISON: Chest CT with contrast from 04/03/2017. CT DOSE (mGy.cm): The estimated cumulative dose is 659.65 mGycm. FINDINGS: Staff Home Therapy Rn topogram: Unremarkable. Pulmonary vasculature: The study is adequate for assessment of the pulmonary vascular tree. No filling defect within the pul monary arteries to suggest embolus. Main pulmonary artery is not enlarged. No flattening of the inter ventricular septum. No intracardiac filling defect. No reflux of contrast into the hepatic veins. Remaining chest: Soft tissues: Normal thyroid and thoracic inlet. No axillary, supraclavicular, mediastinal, or hilar lymphadenopathy. Normal aorta. The free wall of the right ventricle is mildly compressed. No pericard ial or pleural effusion. Upper abdomen normal. Lungs and airways: Moderate to large left pneumothorax. Central airways patent. Pulmonary arteries ar e not significantly enlarged relative to adjacent bronchi. No interlobular septal thickening. Resulti ng passive atelectasis anomaly in the left lower lobe. Paraseptal emphysematous changes at the apices . Trace centrilobular emphysema may also be present. A suture margin is noted at the right apex. Musculoskeletal: Degenerative changes of the spine. IMPRESSION: 1. Moderate to large left pneumothorax. Mild compression of the free wall the right ventricle sugges t developing tension. Decompression is recommended. 2. Paraseptal emphysematous changes with trace centrilobular emphysema. Rupture of an apical bulla/b leb may account for the pneumothorax. 3. Suture margin at the right apex. The report will be called/faxed according to standard departmental protocol. Electronically signed by: Toribio Fenton M.D. 08/10/2019 5:25 PM
--- NOTE | 2019-08-10 17:47 | History & Physical Report ---
Date of Service August 10, 2019 Assessment & Plan (1) Pneumothorax on left: -Admit to telemetry -Thoracic surgery has been consulted- no plans for chest tube per discussion at this time. Pt improved with O2, chest tube per their teams recommendations. -CT chest reviewed: 1. Moderate to large left pneumothorax. Mild compression of the free wall the right ventricle suggest developing tension. Decompression is recommended. 2. Paraseptal emphysematous changes with trace centrilobular emphysema. Rupture of an apical bulla/bleb may account for the pneumothorax. 3. Suture margin at the right apex. -CT angio negative for PE, d-dimer acutely elevated likely due to pneumo. -CXR reviewed as above -Continue oxygen as needed, no CPAP HS as no chest tube in place at this point. Confirmed with thoracic surgery service. -Patient with history of spontaneous pneumothorax which was decompressed in April [address] Montalvo which was likely due to right apical blebs. Again this time large bleb may have caused spontaneous pneumothorax. (2) History of tobacco use: -History of such, smokes started at age 15, 1/2 pack/day until age 50. -Unknown if the patient has never had formal PFTs in the past, would benefit from this as outpatient (3) Hypertension: -Continue amlodipine 10 mg every morning (4) Obesity (BMI 30-39.9): -BMI = 34.7, diet and exercise to be encouraged upon discharge (5) Cervicalgia: (6) Lumbar disc herniation with radiculopathy: -History of lumbar disc surgery several years ago, follows with pain management clinic as an outpatient. -Continue Percocet 10/325 mg every 8H prn, gabapentin 600 TID (7) DVT prophylaxis: -teds CODE: FULL Dispo: From home, admitted to tele, likely to remain in the hospital x 1-2 days History of Present Illness Primary Care Provider: Rox Mattson MD This is a 54 yo male with PMHx of HTN, HLD, WILLIAM on cpap, obesity with BMI of 34.7, chronic back pain and peripheral neuropathy into the LLE on chronic narcotic therapy, who presents with worsening shortness of breath and chest discomfort. Patient notes that his discomfort started mid last week, and has been ongoing. He notices that he is unable to climb a flight of stairs without becoming short of breath. He denies any use of supplemental O2 other than his CPAP at night. He denies any fevers, chills or sweats and no sick contacts. He denies any palpitations, flutter, lightheadedness or dizziness. Other pertinent hx includes spontaneous pneumothorax which was decompressed in April [address] Montalvo which was likely due to right apical blebs. Again this time large bleb may have caused spontaneous pneumothorax. Here in the ER CXR and CT reveal moderate to large anterior left-sided pneumothorax. Thoracic surgery has been consulted. BP 149/94 aspiratory rate is 29, he has been placed on supplemental O2. Allergies Allergy/AdvReac Type Severity Reaction Status Date / Time No Known Allergies Allergy Unverified 08/10/19 17:01 Home Medications Home Medications Medication Instructions Recorded Confirmed Type acetaminophen 500 mg tablet 1,000 mg PO Q6H PRN #30 tab 03/28/19 08/10/19 Rx gabapentin 600 mg tablet 600 mg PO TID 06/27/19 08/10/19 History diclofenac sodium 75 mg 75 mg PO BID #60 tab 07/23/19 08/10/19 Rx tablet,delayed release amlodipine 10 mg PO QAM 08/10/19 08/10/19 History oxycodone-acetaminophen 1 tab PO Q8H PRN 08/10/19 08/10/19 History Past Med/Surg History Medical History Hypertension Lumbar disc herniation with radiculopathy Surgical History History of back surgery S/P knee replacement Family History Unknown No pertinent family history Social History Preferred Language: Mongolian Communication Ability: Effective Visual Impairment: No Limitations Hearing Ability: Normal Account Development Manager Required: No Beliefs That Will Affect Care: None marital status: Current Living Situation: Spouse and Family current occupational status: employed current occupation: [employer]. Other Information That Helps Us Care for You: No Feels Safe at Home: Yes Safety Concerns: Feels Safe At This Time Smoking Status: Former smoker Second Hand Exposure: No ; Hx Alcohol Use: No Hx Substance Use: No Dental Care, Regularly: Yes Physical Activity Frequency: Does not Exercise Review of Systems Review of Systems: Constitutional: No fever, sweats or chills Eyes: No diplopia, no worsening or blurred vision ENT: normal hearing, no trouble swallowing Respiratory: As per HPI. Cardiovascular: + Chest discomfort, no tightness or palpitations Abdomen: No pain, nausea, vomiting, diarrhea or constipation Musculoskeletal: No joint pain, calf pain, swelling Neurologic: No weakness, chronic LLE numbness/tingling down into the foot but otherwise negative, no balance problems Psychiatric: No anxiety or depression Skin: No rash or itch Physical Exam Physical Exam: General: -Trinidadian, awake, alert, no apparent distress Head: Normocephalic, atraumatic ENT: PERRL, EOMI, mucous membranes moist Chest: Nearly absent breath sounds over the left side in anterior and posterior lopez, on supplemental oxygen, otherwise clear throughout. Cardiac: Regular rate and rhythm, no murmur, no JVD, normal peripheral pulses, good capillary refill Abdominal: NABS x 4 quadrants, soft, nontender to palpation, no rebound, guarding or tenderness Extremities: Normal inspection, no peripheral edema or erythema, calfs nontender to palpation Psych: Normal mood and affect Neuro: AAO x 3, no motor deficits, speech is clear, no peripheral sensory deficits Skin: no rash or erythema Constitutional: WD/WN, vitals as above Eyes: normal visual lopez by confrontation and + anicteric sclerae Neck: normal visual inspection and trachea midline Respiratory: normal respiratory effort; no respiratory distress Auscultation: + diminished lung sounds (L side with minimal breath sounds, R side is WNL); no crackles and no wheezes Cardiovascular: Rate/Rhythm: regular rate and regular rhythm Gastrointestinal (Abdomen): Inspection/Auscultation: abdomen not distended Percussion/Palpation: abdomen soft; abdomen nontender Musculoskeletal: Head/Neck/Chest: normocephalic and head atraumatic Neg for peripheral LE edema, + pedal pulses Skin: no rashes, warm and dry Neurologic: awake; not confused Speech / Cognition: normal speech Psychiatric: A+Ox3, euthymic affect Lymphatic: Exam as done by Jody Munoz DO Results & Data Vital Signs (Past 12 Hours) Vital Signs Temp Pulse Resp BP Pulse Ox 08/10/19 17:00 81 29 H 149/94 H 95 08/10/19 16:30 85 26 H 147/108 H 08/10/19 16:09 85 21 105/78 93 08/10/19 16:00 86 21 94 08/10/19 15:55 85 21 99 08/10/19 15:53 99 08/10/19 15:52 80 27 H 158/102 H 98 08/10/19 15:37 36.8 C 84 28 H 156/[address] angio chest PE protocol CLINICAL HISTORY: 54 years-old Male presenting with shortness of breath, atypical chest pain, clinical concern for pulmonary embolus. TECHNIQUE: Multidetector CT angiography of the chest was performed after administration of intravenous contrast. 3-D volumetric and/or maximum intensity projection (MIP) images were subsequently reconstructed for review. IV contrast: 119 mL of Optiray 320. One or more dose lowering techniques were used consistent with the principles of ALARA (as low as reasonably achievable), including automatic exposure control, mA or kV adjustment to individual patient size, and/or use of iterative reconstruction. COMPARISON: Chest CT with contrast from 04/03/2017. CT DOSE (mGy.cm): The estimated cumulative dose is 659.65 mGycm. FINDINGS: Flow Coordinator topogram: Unremarkable. Pulmonary vasculature: The study is adequate for assessment of the pulmonary vascular tree. No filling defect within the pulmonary arteries to suggest embolus. Main pulmonary artery is not enlarged. No flattening of the interventricular septum. No intracardiac filling defect. No reflux of contrast into the hepatic veins. Remaining chest: Soft tissues: Normal thyroid and thoracic inlet. No axillary, supraclavicular, mediastinal, or hilar lymphadenopathy. Normal aorta. The free wall of the right ventricle is mildly compressed. No pericardial or pleural effusion. Upper abdomen normal. Lungs and airways: Moderate to large left pneumothorax. Central airways patent. Pulmonary arteries are not significantly enlarged relative to adjacent bronchi. No interlobular septal thickening. Resulting passive atelectasis anomaly in the left lower lobe. Paraseptal emphysematous changes at the apices. Trace centrilobular emphysema may also be present. A suture margin is noted at the right apex. Musculoskeletal: Degenerative changes of the spine. IMPRESSION: 1. Moderate to large left pneumothorax. Mild compression of the free wall the right ventricle suggest developing tension. Decompression is recommended. 2. Paraseptal emphysematous changes with trace centrilobular emphysema. Rupture of an apical bulla/bleb may account for the pneumothorax. 3. Suture margin at the right apex. The report will be called/faxed according to standard departmental protocol. XR chest 1V portable CLINICAL HISTORY: 54 years-old Male presenting with Chest Pain that began Tuesday, persistent. TECHNIQUE: Portable upright AP view of the chest was obtained. COMPARISON: 04/05/2017. FINDINGS: Cardiomediastinal silhouette normal. No focal opacity. Small to moderate left apical pneumothorax. No mediastinal shift to suggest tension. No pleural effusion. Osseous structures normal. Upper abdomen normal. IMPRESSION: 1. Small to moderate left pneumothorax. No evidence of tension at this time. The report will be called/faxed according to standard departmental protocol for a critical finding. Code Status & VTE Plan Code Status Full code-discussed with patient at bedside VTE Prophylaxis Plan VTE Prophylaxis will be ordered: Yes Supervising Physician Co-Signing Physician Notes Pt seen and examined by me. Denies chest pain or SOB currently. Has been tolerating PO without issue. Agree with HPI/ROS as noted by PA See above for my exam in PE section Agree with plan as outlined above L sided pneumothorax Seen by CT surg PA in the ED, planning to avoid chest tube and manage with outpt surgery as pt did well with this in the past for a R sided pneumo Ddimer elevated, CTA noted for pneumo PG Care Time/CCT Total # of Minutes Spent Total Time Spent with Patient: Total time spent is greater than 50% in coordination of care (as documented) at patient's floor/unit and/or counseling patient:
--- NOTE | 2019-08-10 18:09 | Surgery Consultation ---
Date of Consultation August 10, 2019 Assessment & Plan (1) Pneumothorax on left: -the pt. is noted to be clinically stable -the pt. has been admitted to the hospitalist service -we will place him on oxygen 4 liters of oxygen via NC (continuous) -repeat CXR in am -appearance of CXR will determine next coirse of action (d/c with outpt. follow-up, chest tube placement, surgical resection of blebs) -discussed with hospitalists and advised them to not use CPAP as this may exacerbate his pneumothorax History of Present Illness Reason for Consultation: Pneumothorax History of Present Illness 54 year old male presented to ED secondary to 1.5 weeks of pleuritic CP and SCRUGGS. He tried OTC cough suppressant and his symptoms did not resolve. He notes a hx. of a right spontaneous pneumothorax in 2017 and he had similar symptoms. He offers no other complaints other than pleuritic CP and SCRUGGS. He notes when he is feeling well he leads an active lifestyle which is not limited by SOB or exertional CP. At the time of my exam he was doing well and noted that his breathing felt comfortable. In the ED, both a CXR and Ct scan of his chest revealed a left pneumothorax. He was not hypotensive or tachycardic, and his pulse ox was 100 % on a non- rebreather. Allergies Allergy/AdvReac Type Severity Reaction Status Date / Time No Known Allergies Allergy Unverified 08/10/19 17:01 Home Medications Home Medications Medication Instructions Recorded Confirmed Type acetaminophen 500 mg tablet 1,000 mg PO Q6H PRN #30 tab 03/28/19 08/10/19 Rx gabapentin 600 mg tablet 600 mg PO TID 06/27/19 08/10/19 History diclofenac sodium 75 mg 75 mg PO BID #60 tab 07/23/19 08/10/19 Rx tablet,delayed release amlodipine 10 mg PO QAM 08/10/19 08/10/19 History oxycodone-acetaminophen 1 tab PO Q8H PRN 08/10/19 08/10/19 History Patient History Medical History Hypertension Lumbar disc herniation with radiculopathy Surgical History History of back surgery S/P knee replacement Family History Unknown No pertinent family history Social History Preferred Language: Fijian Communication Ability: Effective Visual Impairment: No Limitations Hearing Ability: Normal marital status: Current Living Situation: Family current occupational status: employed current occupation: [employer] Feels Safe at Home: Yes Smoking Status: Former smoker Second Hand Exposure: No ; Hx Alcohol Use: No Hx Substance Use: No Dental Care, Regularly: Yes Physical Activity Frequency: Does not Exercise Review of Systems Constitutional: no fever, no chills and no weakness Eyes: no diplopia Ear, Nose, Mouth, Throat: no tinnitus Respiratory: + dyspnea on exertion and + pain on inspiration; no cough Cardiovascular: no chest pain at rest and no radiating jaw, neck or arm pain Gastrointestinal: no nausea and no vomiting Musculoskeletal: + back pain (chronic ) Integumentary: no rash Neurologic: chronic LE neuropathy related to L-spine HNP Physical Exam Physical Exam: well healed incisions noted on right lateral chest wall from previous VATS Constitutional: well developed and well nourished; no acute distress Eyes: no conjunctival abnormality ENMT: Ears: no hearing impairment Neck: trachea midline; no neck crepitus Respiratory: normal respiratory effort; no respiratory distress and no labored breathing BS are present bilaterally but noted to be diminished on the left Cardiovascular: Rate/Rhythm: regular rate and regular rhythm Vessels: dorsalis pedis pulses present and radial pulses present Gastrointestinal (Abdomen): Inspection/Auscultation: abdomen normal to inspection Percussion/Palpation: abdomen soft; abdomen nontender Musculoskeletal: no calf tenderness Neurologic: follows commands and moves all extremities without noted deficits Psychiatric: A+Ox3, euthymic affect Results & Data Vital Signs (Past 12 Hours) Vital Signs Temp Pulse Resp BP Pulse Ox 08/10/19 17:49 73 28 H 171/116 H 98 08/10/19 17:40 100 08/10/19 17:00 81 29 H 149/94 H 95 08/10/19 16:30 85 26 H 147/108 H 08/10/19 16:09 85 21 105/78 93 08/10/19 16:00 86 21 94 08/10/19 15:55 85 21 99 08/10/19 15:53 99 08/10/19 15:52 80 27 H 158/102 H 98 08/10/19 15:37 36.8 C 84 28 H 156/104 H 99 PG Care Time/CCT Total # of Minutes Spent Total Time Spent with Patient: Total time spent is greater than 50% in coordination of care (as documented) at patient's floor/unit and/or counseling patient:
--- NOTE | 2019-08-10 18:23 | Emergency Department Note ---
Entered by Max Davila acting as a scribe for Carlos Arellano DO History of Present Illness General Chief complaint: Chest Pain Stated complaint: CHEST PAIN,SOB Time Seen by Provider: 08/10/19 15:51 Source: patient History of Present Illness Onset (ago): day(s) 4 Location: chest Pain Consistency: + other (multiple episodes) Maximum Pain Intensity: 8 Quality: + other (chest pain) Exacerbated By: + rest Associated symptoms: + cough, + shortness of breath and + other (+heart is beating really hard; +congested; -pain/swelling to legs; -abdominal pain) The patient is a 54 year old male, with past medical history of hypertension, who presents to the Emergency Room with complaints of multiple episodes of chest pain for the last 4 days. The patient states the chest pain is accompanied with shortness of breath, and he states the episodes arise when he is resting and not doing much at home. The patient states it feels as if his heart is beating really hard during each episode as well. The patient also notes of a cough, and he states he feels congested. The patient denies taking any medicine for congestion. The patient also denies pain/swelling to his legs and abdominal pain. The patient states that he has not traveled anywhere recently. Home Medications Home Medications Medication Instructions Recorded Confirmed Type acetaminophen 500 mg tablet 1,000 mg PO Q6H PRN #30 tab 03/28/19 08/10/19 Rx gabapentin 600 mg tablet 600 mg PO TID 06/27/19 08/10/19 History diclofenac sodium 75 mg 75 mg PO BID #60 tab 07/23/19 08/10/19 Rx tablet,delayed release amlodipine 10 mg PO QAM 08/10/19 08/10/19 History oxycodone-acetaminophen 1 tab PO Q8H PRN 08/10/19 08/10/19 History Allergies Allergy/AdvReac Type Severity Reaction Status Date / Time No Known Allergies Allergy Unverified 08/10/19 17:01 Past Med/Surg History Medical History Hypertension Lumbar disc herniation with radiculopathy Surgical History History of back surgery S/P knee replacement Family History Unknown No pertinent family history Social History Preferred Language: Amharic Communication Ability: Effective Visual Impairment: No Limitations Hearing Ability: Normal marital status: Current Living Situation: Family current occupational status: employed current occupation: [employer]. Feels Safe at Home: Yes Smoking Status: Former smoker Second Hand Exposure: No ; Hx Alcohol Use: No Hx Substance Use: No Dental Care, Regularly: Yes Physical Activity Frequency: Does not Exercise Review of Systems See HPI for pertinent positives & negatives. and A total of 10 systems reviewed and were otherwise negative Physical Exam Vital Signs Vital Signs - 24 hr 08/10/19 15:37 08/10/19 15:52 08/10/19 15:53 Temperature 36.8 C Temperature Source Oral Sepsis Recent Fever Within 48 Hours No Sepsis New/Unexplained Change in Mental Status No Sepsis Action Taken by Nursing No Action Required Pulse Rate 84 80 Pulse Rate from SpO2 Sensor 81 Respiratory Rate 28 H 27 H Blood Pressure 156/104 H 158/102 H Blood Pressure Mean 121 120 Pulse Oximetry 99 98 99 Oxygen Delivery Method Room Air Room Air Oxygen Flow Rate 08/10/19 15:55 08/10/19 16:00 08/10/19 16:09 Temperature Temperature Source Sepsis Recent Fever Within 48 Hours Sepsis New/Unexplained Change in Mental Status Sepsis Action Taken by Nursing Pulse Rate 85 86 85 Pulse Rate from SpO2 Sensor 87 85 85 Respiratory Rate 21 21 21 Blood Pressure 105/78 Blood Pressure Mean 87 Pulse Oximetry 99 94 93 Oxygen Delivery Method Room Air Oxygen Flow Rate 08/10/19 16:30 08/10/19 17:00 08/10/19 17:40 Temperature Temperature Source Sepsis Recent Fever Within 48 Hours Sepsis New/Unexplained Change in Mental Status Sepsis Action Taken by Nursing Pulse Rate 85 81 Pulse Rate from SpO2 Sensor 81 68 Respiratory Rate 26 H 29 H Blood Pressure 147/108 H 149/94 H Blood Pressure Mean 121 112 Pulse Oximetry 95 100 Oxygen Delivery Method Nasal Cannula Oxygen Flow Rate 2 08/10/19 17:49 08/10/19 18:00 08/10/19 18:14 Temperature Temperature Source Sepsis Recent Fever Within 48 Hours Sepsis New/Unexplained Change in Mental Status Sepsis Action Taken by Nursing Pulse Rate 73 78 69 Pulse Rate from SpO2 Sensor 72 76 69 Respiratory Rate 28 H 23 20 Blood Pressure 171/116 H 166/103 H Blood Pressure Mean 134 124 Pulse Oximetry 98 100 99 Oxygen Delivery Method Nasal Cannula Oxygen Flow Rate 2 GENERAL: Patient is awake, alert, and anxious appearing. EYES: The conjunctivae are clear. The pupils are round and reactive. EARS, NOSE, MOUTH AND THROAT: The nose is without any evidence of any deformity. Mucous membranes are moist.Tongue is midline NECK: The neck is nontender and supple. RESPIRATORY: Normal respiratory effort is noted. There is no evidence of whe ezing rhonchi or rales to auscultation. CARDIOVASCULAR: Faint heart tones were noted. Regular rate and rhythm was noted to auscultation. GASTROINTESTINAL: The abdomen is soft. Abdomen is nontender. MUSCULOSKELETAL/EXTREMITIES: There is no evidence of gross deformity. Full range of motion is noted in the hips and shoulders. SKIN: There is no obvious evidence of any rash. There are no petechiae, pallor or cyanosis noted. NEUROLOGIC: Patient is awake alert and oriented x3. Strength is symmetric. Patellar reflexes are 2+ bilaterally. Course 1553: Past medical records reviewed. The patient was evaluated in room A2. A complete history and physical exam was performed. 1703: I discussed the patient's case with Dr. Anguiano. 1707: I reevaluated and updated the patient on his case. 1718: I discussed the patient's case with Dr. Anguiano. Dr. Braga will further evaluate the patient. 1722: I reviewed the patient's case with Dr. Munoz-Nelson [facility]. Dr. Munoz will evaluate the patient for further management. Consultations Consultation #1: I discussed the patient's case with Dr. Anguiano. Time: 17:03 Consultation #2: I discussed the patient's case with Dr. Anguiano. Dr. Braga will further evaluate the patient. Time: 17:18 Consultation #3: I reviewed the patient's case with Dr. Munoz-Nelson [facility]. Dr. Munoz will evaluate the patient for further management. Time: 17:22 Administered Medications Ioversol (Optiray 320 125ml) 118 ml IV ONCE PRN PRN Reason: Interaction Checking Stop: 08/14/19 17:12 Last Admin: 08/10/19 17:14 Dose: 118 ml Documented by: [id number] Discontinued Medications Aspirin (Aspirin) 324 mg PO NOW STA Stop: 08/10/19 15:54 Last Admin: 08/10/19 16:51 Dose: 324 mg Documented by: [id number] Medical Decision Making Differential Diagnosis Differential diagnosis: Etiologies such as cardiac ischemia, aortic dissection, pulmonary embolism, p neumonia, pneumothorax, musculoskeletal, infections, pericarditis, myocarditis, esophageal rupture, gastrointestinal, as well as others were entertained. Medical Records Attestation: I reviewed the patient's medical records. Home Medications Current Medication List: was personally reviewed by me Laboratory Data Attestation: I reviewed the patient's lab results. Result diagrams: 08/10/19 16:05 08/10/19 16:05 Lab Results 08/10/19 08/10/19 08/10/19 Range/Units 16:05 16:05 16:05 WBC 8.11 (4.8-10.8) K/uL RBC 4.47 L (4.7-6.1) M/uL Hgb 12.9 L (14.0-18.0) g/dL Hct 37.6 L (42-52) % MCV 84.1 (80-100) fL MCH 28.9 (25-34) pg MCHC 34.3 (32-36) g/dL RDW Std Deviation 40.1 (36.4-46.3) fL RDW Coeff of Hakeem 13.3 (11.5-14.5) % Plt Count 311 (130-400) K/uL MPV 9.8 (7.4-10.4) fL Immature Gran % (Auto) 0.2 % Neut % (Auto) 57.9 % Lymph % (Auto) 33.3 % [place] % (Auto) 5.7 % Eos % (Auto) 2.8 % Baso % (Auto) 0.1 % Immature Gran # (Auto) 0.02 (0.00-0.02) K/uL Neut # (Auto) 4.69 (1.4-6.5) K/uL Lymph # (Auto) 2.70 (1.2-3.4) K/uL [place] # (Auto) 0.46 (0.11-0.59) K/uL Eos # (Auto) 0.23 (0-0.5) K/uL Baso # (Auto) 0.01 (0-0.2) K/uL PT 10.6 (9.0-12.0) Seconds INR 1.0 (0.9-1.1) APTT 22.6 (21.0-31.0) Seconds PTT Ratio 0.8 D-Dimer 1290 H* (0-500) ug/L FEU Sodium 138 (136-145) mmol/L Potassium 3.6 (3.5-5.1) mmol/L Chloride 106 (98-107) mmol/L Carbon Dioxide 25 (21-32) mmol/L Anion Gap 7.0 (3-11) BUN 10 (7-18) mg/dl Creatinine 0.90 (0.6-1.4) mg/dl Est Cr Clr Drug Dosing 129.9 ml/min Est GFR ( Amer) 113.4 Est GFR (Non-Af Amer) 97.9 BUN/Creatinine Ratio 11.5 (10-20) Glucose 76 (70-99) mg/dl Calcium 8.7 (8.5-10.1) mg/dl Total Bilirubin 0.4 (0.2-1) mg/dl AST 21 (15-37) U/L ALT 36 (12-78) U/L Alkaline Phosphatase 80 (45-117) U/L Total Creatine Kinase 671 H (39-308) U/L CK-MB (CK-2) 6.5 H (0.5-3.6) ng/ml CK/CKMB % Calc 1.0 (0-3.0) Troponin I < 0.015 (0-0.045) ng/ml Total Protein 7.5 (6.4-8.2) gm/dl Albumin 4.0 (3.4-5.0) gm/dl Globulin 3.5 (2.5-4.0) gm/dl Albumin/Globulin Ratio 1.1 (0.9-2) Lipase 60 L (73-393) U/L Imaging Data Radiologist's Impression: Radiology results as stated below per my review and the radiologist's interpretation: XR chest 1V portable CLINICAL HISTORY: 54 years-old Male presenting with Chest Pain that began Sixto, persistent. TECHNIQUE: Portable upright AP view of the chest was obtained. COMPARISON: 04/05/2017. FINDINGS: Cardiomediastinal silhouette normal. No focal opacity. Small to moderate left apical pneumothorax. No mediastinal shift to suggest tension. No pleural effusion. Osseous structures normal. Upper abdomen normal. IMPRESSION: 1. Small to moderate left pneumothorax. No evidence of tension at this time. The report will be called/faxed according to standard departmental protocol for a critical finding. Electronically signed by: Toribio Fenton M.D. 08/10/2019 4:[address] angio chest PE protocol CLINICAL HISTORY: 54 years-old Male presenting with shortness of breath, atypical chest pain, clinical concern for pulmonary embolus. TECHNIQUE: Multidetector CT angiography of the chest was performed after administration of intravenous contrast. 3-D volumetric and/or maximum intensity projection (MIP) images were subsequently reconstructed for review. IV contrast: 119 mL of Optiray 320. One or more dose lowering techniques were used consistent with the principles of ALARA (as low as reasonably achievable), including automatic exposure control, mA or kV adjustment to individual patient size, and/or use of iterative reconstruction. COMPARISON: Chest CT with contrast from 04/03/2017. CT DOSE (mGy.cm): The estimated cumulative dose is 659.65 mGycm. FINDINGS: Front Worker topogram: Unremarkable. Pulmonary vasculature: The study is adequate for assessment of the pulmonary vascular tree. No filling defect within the pulmonary arteries to suggest embolus. Main pulmonary artery is not enlarged. No flattening of the interventricular septum. No intracardiac filling defect. No reflux of contrast into the hepatic veins. Remaining chest: Soft tissues: Normal thyroid and thoracic inlet. No axillary, supraclavicular, mediastinal, or hilar lymphadenopathy. Normal aorta. The free wall of the right ventricle is mildly compressed. No pericardial or pleural effusion. Upper abdomen normal. Lungs and airways: Moderate to large left pneumothorax. Central airways patent. Pulmonary arteries are not significantly enlarged relative to adjacent bronchi. No interlobular septal thickening. Resulting passive atelectasis anomaly in the left lower lobe. Paraseptal emphysematous changes at the apices. Trace centrilobular emphysema may also be present. A suture margin is noted at the right apex. Musculoskeletal: Degenerative changes of the spine. IMPRESSION: 1. Moderate to large left pneumothorax. Mild compression of the free wall the right ventricle suggest developing tension. Decompression is recommended. 2. Paraseptal emphysematous changes with trace centrilobular emphysema. Rupture of an apical bulla/bleb may account for the pneumothorax. 3. Suture margin at the right apex. The report will be called/faxed according to standard departmental protocol. Electronically signed by: Toribio Fenton M.D. 08/10/2019 5:25 PM ECG Data Attestation: I personally reviewed and interpreted this ECG as follows: Indication: + chest pain Rate (beats per minute): 86 Rhythm: + normal sinus ECG ST segments: no ST depression and no ST elevation ECG Findings: + Other (some changes in the electrical amplititude was noted ); no PACs and no PVCs Comparison ECG Date: from (04/02/17) Change: the following changes noted (changes appear new) Blood Pressure Blood Pressure Findings: Elevated blood pressure Blood Pressure Disposition: further management by hospitalist MDM Narrative The patient is a 54-year-old male who presented to the emergency department for an evaluation of chest pain. The patient describes anterior chest pain which has been experiencing recently. The pain is not exertional. The patient does complain of significant shortness of breath. I discussed the patient's laboratory and radiographic studies with him. He was found to have an abnormal chest x-ray which showed a pneumothorax. I discussed the patient's laboratory and radiographic studies with the thoracic surgeon. CT the chest was ordered to further evaluate the size and nature of the pneumothorax. CT the chest was obtained and showed a very significant pneumothorax with bullous formation. The patient has had previous symptoms in the past although he did not mention this to me initially. He was placed on oxygen. I discussed the patient's condition with the on-call [facility] hospitalist group. They they have agreed to evaluate the patient in the emergency department for further management disposition. Impression & Plan Chest pain, Pneumothorax on left, Abnormal ECG Discharge Plan Visit Data Chief Complaint: Chest Pain Stated Complaint: CHEST PAIN,SOB ED Provider: Carlos Arellano Discharge Problem: Chest pain, Pneumothorax on left, Abnormal ECG Patient Disposition: Being Evaluated by Hospitalist Forms Stand Alone Forms: Call Back Authorization, [facility] Prescriptions Prescriptions: No Action diclofenac sodium 75 mg tablet,delayed release (DR/EC) 75 mg PO BID Qty: 60 RF: 1 acetaminophen [Tylenol Extra Strength] 500 mg tablet 1,000 mg PO Q6H PRN (Reason: Pain) Qty: 30 RF: 5 gabapentin 600 mg tablet 600 mg PO TID RF: 0 oxycodone-acetaminophen 10-325 mg tablet 1 tab PO Q8H PRN (Reason: Pain) RF: 0 amlodipine 10 mg tablet 10 mg PO QAM RF: 0 Referrals Referrals: Rox Mattson MD [Primary Care Provider] - Discharge Problem: Chest pain Qualifiers: Chest pain type: unspecified Qualified Code(s): R07.9 - Chest pain, unspecified The scribe's documentation has been prepared under my direction and personally reviewed by me in its entirety. I confirm that the note above accurately reflects all work, treatment, procedures, and medical decision making performed by me.
[2019-08-10] MEDS ORDERED: ONDANSETRON INJ 2 MG/ML 2 ML VIAL IV PRN (19:07)
[2019-08-10] MEDS ORDERED: ACETAMINOPHEN 500 MG TAB PO PRN (19:07)
[2019-08-10] MEDS: GABAPENTIN 600 MG TAB PO SCH (20:48)
[2019-08-10] MEDS: DICLOFENAC SODIUM 75 MG TABCR PO SCH (20:48)
[2019-08-10] MEDS: OXYCODONE/ACETAMINOPHEN 10-325 TAB PO PRN (20:54)
[2019-08-11 06:13] LABS: Hematocrit (blood only) 36.3 % (42-52); Hemoglobin 12.7 g/dL (14.0-18.0); Mean Corpuscular Hemoglobin 29.5 pg (25-34); Mean Corpuscular Volume 84.2 fL (80-100); Mean Platelet Volume 9.4 fL (7.4-10.4); Platelet Count 281 K/uL (130-400); RDW Coefficient of Variation 13.4 % (11.5-14.5); RDW Standard Deviation 40.9 fL (36.4-46.3); Red Blood Count 4.31 M/uL (4.7-6.1); White Blood Count 6.32 K/uL (4.8-10.8)
[2019-08-11] MEDS: OXYCODONE/ACETAMINOPHEN 10-325 TAB PO PRN (06:37)
[2019-08-11 06:46] LABS: Albumin Globulin Ratio 0.9 (0.9-2); Albumin Level 3.3 gm/dl (3.4-5.0); BUN Creatinine Ratio 13.9 (10-20); Bilirubin,Total 0.3 mg/dl (0.2-1); Calcium 8.3 mg/dl (8.5-10.1); Est GFR (African American) 111.9; Est GFR (Non-African American) 96.6; Globulin 3.8 gm/dl (2.5-4.0); Potassium 4.4 mmol/L (3.5-5.1); Total Protein 7.1 gm/dl (6.4-8.2)
--- NOTE | 2019-08-11 07:10 | XRay Report ---
XR chest 1V portable CLINICAL HISTORY: pneumothorax COMPARISON STUDY: 08/10/2019 FINDINGS: The cardiac and mediastinal contours remain stable. There is a left-sided pneumothorax in t he lateral pleural separation of 23 mm. Minor left basilar airspace opacities are visualized.[ IMPRESSION: 1. Persistent left-sided pneumothorax with a lateral pleural separation of 23 mm 2. Persistent left basilar airspace opacities Electronically signed by: Aleksandar Cruz M.D. 08/11/2019 7:09 AM
[2019-08-11] MEDS: DICLOFENAC SODIUM 75 MG TABCR PO SCH (07:23)
[2019-08-11] MEDS: GABAPENTIN 600 MG TAB PO SCH (07:24)
[2019-08-11] MEDS ORDERED: AMLODIPINE BESYLATE 5 MG TAB PO SCH (09:00)
--- NOTE | 2019-08-11 09:34 | Surgery Progress Note ---
Date of Service August 11, 2019 Assessment & Plan (1) Pneumothorax on left: Present on Admission?: Yes (2) Lung blebs: I had a long talk with Mr. Lai. He is not in a unique position because he knows what a pneumothorax feels like. He also feels he is getting better. He is quite eager to get home and make sure that he has "things straight at work" before he has an elective left apical bleb resection. Reviewed his CT scan from 2017 as well as now. He had larger blebs on the right. We noted his left apical blebs but of course at that time would not offer him prophylactic surgery as it was not indicated however, now that he is developed a spontaneous pneumothorax, a left thoracoscopic apical bleb resection is indicated. We talked about this in some detail. He is quite eager to get home and have this set up electively. We will set this up in the next few days. I discussed this with Dr. Webber. Present on Admission?: Yes Subjective Patient states he is "fine" and wants to go home. He has to make arrangements at work. We have already done a blebectomy on the right side and he is asking about having it done on the left side. His symptoms have been going on for several days and he knows them well. Saturations are 95% on room air after ambulation. He has improved since admission. Is eager to go home. We discussed this in some detail today. Review of Systems Review of Systems: All systems reviewed & are unremarkable except as noted in HPI & below Patient stated he had a "cold" but is no longer having a productive cough. He states that he "popped my lung" several days ago. He is progressively gotten better since he got to the hospital. His pneumothorax is stable. Physical Exam Physical Exam: He is awake alert oriented and stable condition. His right-s ided thoracoscopy incisions are well-healed. He has good aeration with good breath sounds on the right. He does have some decreased breath sounds on the left. He has no wheezing. Rest of his physical exam is unremarkable. Results & Data Vital Signs (Past 12 Hours) Vital Signs Temp Pulse Pulse Resp BP BP Pulse Ox 08/11/19 09:17 95 08/11/19 08:00 58 L 08/11/19 07:06 36.3 C L 58 L 20 148/95 H 98 11/09/19 03:52 36.5 C 63 20 136/89 99 08/10/19 23:57 36.6 C 76 20 121/65 99 PG Care Time/CCT Total # of Minutes Spent Total Time Spent with Patient: Total time spent is greater than 50% in coordination of care (as documented) at patient's floor/unit and/or counseling patient:
--- NOTE | 2019-08-11 10:25 | Discharge Summary ---
Date of Service August 11, 2019 Admission HPI Per Admitting Provider This is a 54 yo male with PMHx of HTN, HLD, WILLIAM on cpap, obesity with BMI of 34.7, chronic back pain and peripheral neuropathy into the LLE on chronic narcotic therapy, who presents with worsening shortness of breath and chest discomfort. Patient notes that his discomfort started mid last week, and has been ongoing. He notices that he is unable to climb a flight of stairs without becoming short of breath. He denies any use of supplemental O2 other than his CPAP at night. He denies any fevers, chills or sweats and no sick contacts. He denies any palpitations, flutter, lightheadedness or d izziness. Other pertinent hx includes spontaneous pneumothorax which was decompressed in [place] [address] Montalvo which was likely due to right apical blebs. Again this time large bleb may have caused spontaneous pneumothorax. Here in the ER CXR and CT reveal moderate to large anterior left-sided pneumothorax. Thoracic surgery has been consulted. BP 149/94 aspiratory rate is 29, he has been placed on supplemental O2. Principal Diagnosis Left sided pneumothorax Discharge Exam Constitutional WD/WN, vitals as above Eyes + anicteric sclerae ENMT external ear and nose normal, oropharynx normal Neck trachea midline, no thyromegaly Respiratory normal respiratory effort, lungs clear to auscultation Cardiovascular RRR, no murmur, no edema Gastrointestinal (Abdomen) normal bowel sounds, soft, nontender, no hepatosplenomegaly Musculoskeletal Extremities: extremities normal to inspection; no cyanosis and no clubbing Skin no rashes, warm and dry Neurologic moves all extremities and awake; no focal motor deficits Psychiatric A+Ox3, euthymic affect Discharge Data Allergies Allergy/AdvReac Type Severity Reaction Status Date / Time No Known Allergies Allergy Unverified 08/10/19 17:01 Consultations 08/10/19 17:23 Consult Thoracic Surgery Stat ED Decision to Admit Stat 08/10/19 19:07 Consult Case Management - Discharge Planning Routine Consult Thoracic Surgery Routine Ordered Studies 08/10/19 16:51 CT angio chest PE protocol Stat CXR x 2 Hospital Course (1) Pneumothorax on left: -Admitted to telemetry -Thoracic surgery has been consulted- no plans for chest tube . Pt improved with O2,and was with POx 95% on RA at time of discharge Thoracic Surgery states that pt is stable for discharge to home as this has been going on for over a week and he is stable. Plans for possible wedge resection of bleb next week. Follow up with Dr. Braga next week-their office to arrange -CT chest reviewed: 1. Moderate to large left pneumothorax. Mild compression of the free wall the right ventricle suggest developing tension. Decompression is recommended. 2. Paraseptal emphysematous changes with trace centrilobular emphysema. Rupture of an apical bulla/bleb may account for the pneumothorax. 3. Suture margin at the right apex. -CT angio negative for PE, d-dimer acutely elevated likely due to pneumo. (2) History of tobacco use: -History of such, smoked starting at age 15, 1/2 pack/day until age 50, continues to not smoke now. (3) Hypertension: -Continue amlodipine 10 mg every morning BPs mildly elevated here Follow up as outpt (4) Obesity (BMI 30-39.9): -BMI = 34.7, diet and exercise to be encouraged upon discharge (5) Cervicalgia: chronic, continue f/u as outpt (6) Lumbar disc herniation with radiculopathy: -History of lumbar disc surgery several years ago, follows with pain management clinic as an outpatient. -Continue Percocet 10/325 mg every 8H prn, gabapentin 600 TID (7) DVT prophylaxis: -teds CODE: FULL Dispo: stable for dc to home today with close Thoracic Surgery follow up Total Time Total Time Spent Total Time Spent (In Minutes): >30 mnin Total Time Includes: Examination of the Patient, Discharge Planning, Medication Reconciliation and Communication With Other Providers (Dr. Braga) Discharge Plan Discharge Items Patient Disposition: Home - Self-Care Reason For Visit: PNEUMOTHORAX Discharge Diagnosis: Pneumothorax Condition on Discharge: Good Activity: Resume your previous activity Driving/Machine Use: No limitations Non-emergency contact: Primary Care Provider and Surgeon Call non-emergency contact if: you have any medication questions, your symptoms worsen, your pain is not controlled, your pain is worsening, your pain is unusual for you and your pain is concerning for you Follow-up/Referrals: Rox Mattson MD [Primary Care Provider] - (Please follow up within 1 week. Please call for an appointment.) Mike Braga MD, FACS [Surgeon] - (Dr. Braga's office will contact you to arrange for surgical evaluation.) Diet: Heart Healthy Addtl Attending Provider Instructions: You were admitted with a pneumothorax of the lung. You were not requiring oxygen and are stable for discharge to home. Dr. Braga's office will contact you to arrange for surgery to correct your problem. Pending Studies at Discharge: No Stand-Alone Forms: Call Back Authorization, [facility], [facility], Smoking Cessation Medications and DC Order Prescriptions: Continued diclofenac sodium 75 mg tablet,delayed release (DR/EC) 75 mg PO BID Qty: 60 RF: 1 acetaminophen [Tylenol Extra Strength] 500 mg tablet 1,000 mg PO Q6H PRN (Reason: Pain) Qty: 30 RF: 5 gabapentin 600 mg tablet 600 mg PO TID RF: 0 oxycodone-acetaminophen 10-325 mg tablet 1 tab PO Q8H PRN (Reason: Pain) RF: 0 amlodipine 10 mg tablet 10 mg PO QAM RF: 0 Discharge Orders: Discharge Order (Routine); Ordered 08/11/19 Ordered By: Michelle Butts/Other Patient Handouts: Pneumothorax Admission Data Admit Date/Time: 08/10/19 17:45 Attending Provider: Michelle Webber Admit Provider: Jody Munoz Primary Care Provider: Rox Mattson Other Providers: Mike Braga ; Jody Munoz
== END 2019-08-11 11:05 | disposition home or self-care (01) | DRG 201 ==
LOC: ED 15:36 → SUATTDRO 17:45 → 2S 17:45

== ENCOUNTER 2019-08-15 12:05 | Inpatient (IN) ==
--- NOTE | 2019-08-14 11:29 | Anesthesiology Consultation ---
Date of Service August 14, 2019 Assessment & Plan (1) Lung blebs: (2) Encounter for pre-operative examination: Chart Review Chart Review: Acceptable Risk for Surgery and Patient NOT seen in Pre Admission Testing Consults Requested none History Surgery Operation Date: 08/15/19 13:40 Proposed Procedures p Left Video-Assisted Thoracoscopy with Apical Bleb Resection - Mike Braga MD, FACS Height/Weight Height: 6 ft 1 in Weight: 142.882 kg Allergies Allergy/AdvReac Type Severity Reaction Status Date / Time No Known Allergies Allergy Unverified 08/10/19 17:01 Medications Home Medications Medication Instructions Recorded Confirmed Last Taken acetaminophen 500 mg tablet 1,000 mg PO Q6H PRN #30 tab 03/28/19 08/10/19 08/10/19 gabapentin 600 mg tablet 600 mg PO TID 06/27/19 08/10/19 08/10/19 diclofenac sodium 75 mg 75 mg PO BID #60 tab 07/23/19 08/10/19 08/10/19 tablet,delayed release amlodipine 10 mg PO QAM 08/10/19 08/10/19 08/10/19 oxycodone-acetaminophen 1 tab PO Q8H PRN 08/10/19 08/10/19 08/10/19 Past Medical History Medical History Benign localized hyperplasia of prostate with urinary obstruction Cervicalgia History of tobacco use Hypertension Lumbar disc herniation with radiculopathy Lung blebs Obesity (BMI 30-39.9) Obstructive sleep apnea Pneumothorax on left (Inactive) Smokeless tobacco use Past Family History Family History Unknown No pertinent family history Past Surgical History Surgical History History of back surgery S/P knee replacement Social History Smoking Status: Former smoker Hx Alcohol Use: No Hx Substance Use: No Testing Laboratory Results Laboratory Tests 08/10/19 08/11/19 08/11/19 16:05 05:49 05:49 WBC 6.32 Hgb 12.7 L Hct 36.3 L Plt Count 281 PT 10.6 INR 1.0 APTT 22.6 Sodium 141 Potassium 4.4 D Chloride 108 H Carbon Dioxide 28 BUN 13 Creatinine 0.91 Glucose 97 Electrocardiogram Date: 08/10/19 Findings: + NSR @ (86) and + no change from (04/02/2017) Chest X-Ray Date: 08/11/19 FINDINGS: The cardiac and mediastinal contours remain stable. There is a left- sided pneumothorax in the lateral pleural separation of 23 mm. Minor left basilar airspace opacities are visualized.[ IMPRESSION: 1. Persistent left-sided pneumothorax with a lateral pleural separation of 23 mm 2. Persistent left basilar airspace opacitiesFINDINGS: The cardiac and mediastinal contours remain stable. There is a left-sided pneumothorax in the lateral pleural separation of 23 mm. Minor left basilar airspace opacities are visualized.[
--- NOTE | 2019-08-15 11:46 | History & Physical Report ---
Date of Service August 15, 2019 Assessment & Plan (1) Pneumothorax on left: I had a long talk with the patient. He understands exactly what we are going to plan to do. We will do an apical bleb resection on the left side. We also discussed postoperative course however he remembers from 2 years ago. We discussed risks and benefits. He understands. Present on Admission?: Yes History of Present Illness Mr. Lai is a 54-year-old male that I know. He been having chest pain for about 10 days on the left side with dyspnea on exertion. He also had a cough. 2 years ago he had a right spontaneous pneumothorax and I performed a right thoracoscopy with apical bleb resection. He did well with that. He states his pain is very similar. Patient was admitted on 08/10/2019. I discharged him on 08/11/2019 as his pneumothorax was stable. We did see him from his CT scan in the past he has a bleb in his left apex. We discussed that he was interested in having an apical bleb resection however, he did not want to stay over the weekend which was appropriate. We set him up to undergo this elective thoracoscopic apical bleb resection on 08/15/2019. Primary Care Provider: Rox Mattson MD Allergies Allergy/AdvReac Type Severity Reaction Status Date / Time No Known Allergies Allergy Verified 08/15/19 12:34 Home Medications Home Medications Medication Instructions Recorded Confirmed Type acetaminophen 500 mg tablet 1,000 mg PO Q6H PRN #30 tab 03/28/19 08/15/19 Rx gabapentin 600 mg tablet 600 mg PO TID 06/27/19 08/15/19 History diclofenac sodium 75 mg 75 mg PO BID #60 tab 07/23/19 08/15/19 Rx tablet,delayed release amlodipine 10 mg PO QAM 08/10/19 08/15/19 History oxycodone-acetaminophen 1 tab PO Q8H PRN 08/10/19 08/15/19 History Past Med/Surg History Medical History Benign localized hyperplasia of prostate with urinary obstruction Cervicalgia History of tobacco use Hypertension Lumbar disc herniation with radiculopathy Lung blebs Obesity (BMI 30-39.9) Obstructive sleep apnea Pneumothorax on left (Inactive) Smokeless tobacco use Surgical History History of back surgery S/P knee replacement Family History Unknown No pertinent family history Social History Preferred Language: Chinese Communication Ability: Effective Visual Impairment: No Limitations Hearing Ability: Normal 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 Other Information That Helps Us Care for You: No Feels Safe at Home: No Is there a partner from a previous relationship who is making you feel unsafe now?: No Any Concerns about Your Family Situation: No Would You Like to Speak to Someone About Your Situation: No Safety Concerns: Feels Safe At This Time Smoking Status: Former smoker Tobacco Type: cigarettes ; Do You Dip or Chew Tobacco: No ; Second Hand Exposure: No ; Tobacco Cessation Education Requested by Patient: No Hx Alcohol Use: No Hx Substance Use: Yes substance use type: opiates Dental Care, Regularly: Yes Physical Activity Frequency: Does not Exercise Review of Systems Review of Systems: All systems reviewed & are unremarkable except as noted in HPI & below Physical Exam Physical Exam: Well-developed well-nourished -German male stands 6 feet 1 inches tall and weighs about 280 pounds. He is awake and alert. Extra fluids are intact. His sclera are muddy but anicteric. His tongue is midline. Oral mucosa is moist. His neck is thick but supple. He has no carotid bruits he has no neck vein distention and no tracheal deviation. Breath sounds are better today on 08/15/2019 and they were 4 days ago. He has a regular rate and rhythm of his heart. His abdomen is a bit obese but soft nontender. He has no peripheral edema. He has excellent peripheral pulses and no joint effusions. Neurologically is completely intact. PG Care Time/CCT Total # of Minutes Spent Total Time Spent with Patient: Total time spent is greater than 50% in coordination of care (as documented) at patient's floor/unit and/or counseling patient:
[~2019-08-15 12:05] MED LIST changes: -CLC100 PO; -GABA800T PO; -LISI-461 PO; +LR 15ML/HR IV SCH; -MORP1TAB12 PO; -OXYSR/10 PO; -TYLOTC325 PO
--- NOTE | 2019-08-15 14:11 | Operative Report ---
PG Post Operative Report Pre & Post Diagnosis Operation Date: 08/15/19 13:40 Pre-op Dx: Right hemothorax Post-op Dx: Same I identified the patient and participated in the time-out.: Yes Procedure Operation Date: 08/15/19 13:40 Right thoracoscopy with evacuation of hemothorax Bleeding area of diaphragm Surgeon Mike Braga MD, FACS Narrative Writer Irena ALBRIGHT Estimated Blood Loss 10 Findings Consistent with Post-Op Diagnosis Specimens Old Blood and intrapleural clot Drains 24 fr chest tube Anesthesia Type General Complications none Disposition Accompanied Patient To Recovery: No Disposition: Recovery Room Indications Hemothorax-unknown etiology. Description of Procedure Patient was brought to the operating room on 08/15/2019. A single-lumen endo tracheal tube was placed. He was turned in left lateral decubitus position and his right chest was prepped and draped in the usual sterile fashion. After appropriate timeout was called and prophylactic antibiotics given a 5 mm incision was made and a 5 mm port was placed posterior to the tip of the scapula. Upon entering we could see that this was rather typically fresh blood. Some of it was clot and most of it was old nonclotting blood. We suctioned out over 1000 cc of old blood and clot. I placed a 5 mm port anteriorly in front of the latissimus dorsi muscle at about the tip of the scapula. We did put a 12 mm port and above the diaphragm at about the mid axillary line. Liposomal bupivacaine, 266 mg in 20 cc of solution, was mixed with 30 cc of 0.5% bupivacaine and 250 cc of normal saline. This was injected to each of the port sites. I also injected this into each intercostal space under thoracoscopic guidance from the 2nd-11th rib. The 12 mm port I was able to put a large sucker and I also used my ringed forceps to break up the clot and remove it. We got all of it out. I then closely inspected the entire pleural cavity and there was no blood in the superior aspect. We inspected the hilum. I saw really no other abnormalities however, occlusion of the case we noted blood coming from the diaphragm. There is an area of the diaphragm that abutted the chest wall which was bleeding. Placing an aqua Mantis through the 12 mm port we easily controlled this. Is unclear to me whether this was the cause of the hemothorax but I could not find any other areas of bleeding. There were no nodules or masses on the diaphragm. Should be noted that we used carbon dioxide insufflation which worked very well even though we had a single-lumen tube in place. We removed all the ports and closed the 12 mm port with a 0 Vicryl. We then placed a chest tube through the mid axillary line port. This 2014 chest tube was directed towards the apex. Until in place heavy silk suture. 4 Monocryl was used in running septic or fashion approximate both 5 mm port sites. He tolerated very well and was extubated in the room. I attest to the content of the Intraoperative Record and any orders documented therein. Any exceptions are noted below.
[2019-08-15] MEDS ORDERED: ONDANSETRON INJ 2 MG/ML 2 ML VIAL ONE (14:21)
[2019-08-15] MEDS ORDERED: ROCURONIUM BROMIDE 10 MG/ML 5 ML VIAL ONE ×5 (14:21→16:19)
[2019-08-15] MEDS ORDERED: PROPOFOL IV EMULSION 10 MG/ML 20 ML VIAL IV ONE (14:21)
[2019-08-15] MEDS ORDERED: fentaNYL citrate 100 MCG/2 ML VIAL ONE ×2 (14:21→14:34)
[2019-08-15] MEDS ORDERED: MIDAZOLAM HCL 1 MG/ML 2ML VIAL ONE (14:21)
[2019-08-15] MEDS ORDERED: LIDOCAINE HCL 2% 2 ML VIAL/AMP(20MG/ML) INFIL ONE (14:21)
[2019-08-15] MEDS ORDERED: DEXAMETHASONE SOD INJ 4 MG/ML VIAL ONE (14:21)
[2019-08-15] MEDS ORDERED: LARYING-O-JET KIT (LTA) ONE (14:25)
[2019-08-15] MEDS ORDERED: SODIUM CHLORIDE 0.9% PF 50 ML VIAL ONE (14:43)
[2019-08-15] MEDS ORDERED: BUPIVACAINE 0.5 % 5 MG/1 ML MPF 30ML VIAL ONE (14:43)
[2019-08-15] MEDS ORDERED: BUPIVACAINE LIPOSOME 1.3% 266 MG/20 ML VIAL ONE (14:43)
[2019-08-15] MEDS ORDERED: CEFAZOLIN 250 MG/ML 1 GM VIAL ONE (15:12)
[2019-08-15] MEDS ORDERED: CEFAZOLIN 3000MG/72.5 ML BAG IV SCH (15:45)
[2019-08-15] MEDS ORDERED: ONDANSETRON INJ 2 MG/ML 2 ML VIAL IV PRN ×2 (16:24→16:28)
--- NOTE | 2019-08-15 16:25 | Operative Report ---
PG Post Operative Report Pre & Post Diagnosis Operation Date: 08/15/19 13:40 Pre-Op Diagnosis: Recurrent Spontaneous Left Pneumothorax, Left Apical Lung Blebs Post-Op Diagnosis: Recurrent Spontaneous Left Pneumothorax, Left Apical Lung Blebs I identified the patient and participated in the time-out.: Yes Procedure Operation Date: 08/15/19 13:40 Actual Procedures p Left Video-Assisted Thoracoscopy with Apical Bleb Resection(Left) - Mike Braga MD, FACS Surgeon Mike Braga MD, FACS Master Rigger Irena ALBRIGHT Estimated Blood Loss 10 Findings Consistent with Post-Op Diagnosis Specimens Left upper lobe apex Drains 24 fr left chest tube Anesthesia Type General Complications none Disposition Accompanied Patient To Recovery: No Disposition: Recovery Room Indications Recurrent spontaneous pneumothoraces Description of Procedure Patient was brought to the operating room on 08/15/2019. Single lumen intubation was performed without difficulty. Patient was then turned in the right lateral decubitus position in his left chest prepped and draped in usual sterile fashion. After appropriate timeout of been called and prophylactic antibiotics given, 5 mm port was placed anterior latissimus dorsi at about the level of the scapula. To be seen there were no adhesions except at the apex. The blebs were obvious in the apex. Another 5 mm port was placed posterior to the scapular tip. A 12 mm port was then placed further down close to the mid axillary line. There were adhesions of these apical blebs and these were taken down from just posterior to the intrathoracic subclavian artery. After taking this down the left upper lobe was able to easily be mobilized. There was some nodularity to this as well as blebs using an Endo ASHWINI stapler, a good portion of the apex was removed. There were no visible blebs left and we inspected this closely particularly the superior segment of the left lower lobe. No other abnormalities were noted. A small Endobag was used to remove the apical portion of the left upper lobe which had been resected. Liposomal bupivacaine was then mixed with 266 mg of Exparel mixed with 30 cc of 0.5% bupivacaine and 250 cc of normal saline. This is been injected to each of the 3 port sites before we made the incision. I then did a intercostal block from the second to the 11th rib under thoracoscopic guidance without difficulty. A 24 Slovak chest tube was placed to the mid axillary line incision directed towards the apex and held in place heavy silk suture. 4 Monocryl was used to close each of the skin incisions. We had no air leak at the conclusion of the case. Blood loss was negligible. He was transported back to the post anesthesia care unit stable condition. I attest to the content of the Intraoperative Record and any orders documented therein. Any exceptions are noted below.
[2019-08-15] MEDS ORDERED: ePHEDrine sulfate 50 MG/ML AMP IV PRN (16:28)
[2019-08-15] MEDS ORDERED: ATROPINE SULFATE 0.1 MG/ML 10ML SYR IV PRN (16:28)
[2019-08-15] MEDS ORDERED: HYDROmorphone INJ 1 MG/ML SYRINGE IV PRN (16:28)
[2019-08-15] MEDS ORDERED: D5W AND 1/2NSS 1,000 ML IV SCH (16:30)
[2019-08-15] MEDS ORDERED: METOCLOPRAMIDE HCL INJ 5 MG/ML 2 ML VIAL IV ONE (16:35)
[2019-08-15] MEDS: fentaNYL citrate 100 MCG/2 ML VIAL IV PRN ×2 (16:48→16:57)
--- NOTE | 2019-08-15 17:02 | XRay Report ---
XR chest 1V portable HISTORY: 54 years-old Male left bleb resection follow-up study in a patient with prior left-sided bl eb resection COMPARISON: Chest radiograph 08/11/2019 TECHNIQUE: Portable AP view of the chest FINDINGS: A chest tube is noted with distal tip projecting over the left lung apex. Tiny left basilar pneumotho rax is noted with pleural separation measuring approximately 6 mm. Minimal airspace opacities of the left lung base. Mild deep tissue air about the lateral left chest wall. Cardiomediastinal and hilar s ilhouettes are unchanged. No overt pulmonary edema or large pleural effusion. Degenerative changes of the shoulders and spine. IMPRESSION: 1. Left-sided chest tube distal tip overlies the left lung apex. 2. Decreased size of the small left pneumothorax. The above report was generated using voice recognition software. It may contain grammatical, syntax o r spelling errors. Electronically signed by: Alcon Nguyễn M.D. 08/15/2019 5:01 PM
--- NOTE | 2019-08-15 17:29 | Anesthesiology Progress Note ---
Date of Service August 15, 2019 Anesthesia Post Procedure Vital Signs Vital Signs: Temp Pulse Pulse Resp BP Pulse Ox 08/15/19 17:15 36.4 C L 56 L 16 124/86 97 08/15/19 17:05 59 L 13 118/83 100 08/15/19 16:55 74 21 127/86 100 08/15/19 16:45 72 18 138/99 100 08/15/19 16:36 36.2 C L 74 21 137/100 100 08/15/19 12:43 36.6 C 76 20 141/89 H 96 Pain Intensity Bilateral Back: Pain Intensity: 3 Left Posterior Chest: Pain Intensity: 2 Transfer of Care Handoff Completed per policy Notes Mental Status: alert / awake / arousable and participated in evaluation Patient Amnestic to Procedure: Yes Nausea / Vomiting: adequately controlled Pain: adequately controlled Airway Patency, RR, SpO2: stable & adequate BP & HR: stable & adequate Hydration State: stable & adequate Anesthetic Complications: no major complications apparent and Pt Satisfied with anesthetic care
[2019-08-15] MEDS ORDERED: OXYCODONE HCL IR 5 MG TAB (IMMEDIATE RELEASE) PO PRN (18:00)
[2019-08-15] MEDS: ACETAMINOPHEN 1,000 MG/100 ML VIAL IV SCH ×2 (19:18→19:30)
[2019-08-15] MEDS: GABAPENTIN 600 MG TAB PO SCH (20:47)
[2019-08-15] MEDS: DOCUSATE SODIUM 100 MG CAP PO SCH (20:47)
[2019-08-15] MEDS: MoRPHine SULFATE 2 MG/ML CARP IV PRN (23:05)
[2019-08-16] MEDS: METOCLOPRAMIDE HCL INJ 5 MG/ML 2 ML VIAL IV SCH ×2 (00:03→08:31)
[2019-08-16] MEDS: MoRPHine SULFATE 2 MG/ML CARP IV PRN ×6 (00:03→16:27)
[2019-08-16] MEDS: ACETAMINOPHEN 1,000 MG/100 ML VIAL IV SCH ×3 (02:14→19:53)
[2019-08-16] MEDS: GABAPENTIN 600 MG TAB PO SCH ×3 (04:15→20:30)
--- NOTE | 2019-08-16 07:23 | XRay Report ---
XR chest 1V portable CLINICAL HISTORY: bleb resection (left) COMPARISON STUDY: 08/15/2019 FINDINGS: The cardiac and mediastinal contours remain stable. The left-sided chest tube remains uncha nged in position. There is slight increase in the size of a left apical pneumothorax which has a pleu ral separation of 28 mm. There is no focal pulmonary consolidation.[ IMPRESSION: Slight increase in the size of a left apical pneumothorax which has a pleural separation of 28 mm. Electronically signed by: Aleksandar Cruz M.D. 08/16/2019 7:21 AM
--- NOTE | 2019-08-16 08:29 | Anesthesiology Progress Note ---
Date of Service August 16, 2019 Anesthesia Post Procedure Vital Signs Vital Signs: Temp Pulse Pulse Pulse Resp BP Pulse Ox 08/16/19 07:48 36.8 C 70 16 136/92 97 08/16/19 06:05 36.8 C 64 18 139/85 97 08/16/19 04:00 36.6 C 71 16 125/77 97 08/16/19 02:00 36.8 C 75 18 100/62 95 08/16/19 00:00 36.8 C 82 16 138/89 97 08/15/19 21:41 36.9 C 97 H 16 127/80 94 08/15/19 20:50 36.7 C 97 H 16 144/92 H 94 08/15/19 19:52 36.9 C 89 16 123/87 96 08/15/19 18:43 36.8 C 69 16 145/85 H 94 08/15/19 17:45 36.6 C 97 H 18 130/86 96 08/15/19 17:25 55 L 12 126/85 98 08/15/19 17:15 36.4 C L 56 L 16 124/86 97 08/15/19 17:05 59 L 13 118/83 100 08/15/19 16:55 74 21 127/86 100 08/15/19 16:45 72 18 138/99 100 08/15/19 16:36 36.2 C L 74 21 137/100 100 08/15/19 12:43 36.6 C 76 20 141/89 H 96 Pain Intensity Bilateral Back: Pain Intensity: 3 Left Posterior Chest: Pain Intensity: 6 Notes Mental Status: alert / awake / arousable and participated in evaluation Patient Amnestic to Procedure: Yes Nausea / Vomiting: adequately controlled Pain: adequately controlled Airway Patency, RR, SpO2: stable & adequate BP & HR: stable & adequate Hydration State: stable & adequate Anesthetic Complications: no major complications apparent and Pt Satisfied with anesthetic care
--- NOTE | 2019-08-16 08:31 | Surgery Progress Note ---
Date of Service August 16, 2019 Assessment & Plan (1) Pneumothorax on left: Patient's pain control has been quite good. Moving air well. He is eager to go home. We will remove his chest tube later today and allow him to be discharged. Present on Admission?: Yes Subjective Mr. Lai has some pain. Unfortunately we did not order his full complement of Percocet. We will increase that today. He has no air leak. He is ambulated multiple times in the hallway. Eager to get the chest tube out and get home. I would like to give him a few more hours however. I will be back at lunch and if his chest tube shows no air leak at that time we will pull chest tube and allow him to go home. Physical Exam Physical Exam: Moving air quite well on the left side. He has no air leak. He has drained a minimal amount of fluid. Results & Data Vital Signs (Past 12 Hours) Vital Signs Temp Pulse Pulse Resp BP Pulse Ox 08/16/19 07:48 36.8 C 70 16 136/92 97 08/16/19 06:05 36.8 C 64 18 139/85 97 08/16/19 04:00 36.6 C 71 16 125/77 97 08/16/19 02:00 36.8 C 75 18 100/62 95 08/16/19 00:00 36.8 C 82 16 138/89 97 08/15/19 21:41 36.9 C 97 H 16 127/80 94 08/15/19 20:50 36.7 C 97 H 16 144/92 H 94 PG Care Time/CCT Total # of Minutes Spent Total Time Spent with Patient: Total time spent is greater than 50% in coordination of care (as documented) at patient's floor/unit and/or counseling patient:
[2019-08-16] MEDS: AMLODIPINE BESYLATE 5 MG TAB PO SCH (08:36)
[2019-08-16] MEDS: DOCUSATE SODIUM 100 MG CAP PO SCH ×2 (08:36→20:30)
[2019-08-16] MEDS: ENOXAPARIN INJ 40 MG/0.4 ML SYR SQ SCH (08:40)
[2019-08-16] MEDS ORDERED: OXYCODONE/ACETAMINOPHEN 10-325 TAB ONE (09:22)
[2019-08-16] MEDS: OXYCODONE/ACETAMINOPHEN 10-325 TAB PO PRN ×2 (12:58→17:58)
[2019-08-17] MEDS: MoRPHine SULFATE 2 MG/ML CARP IV PRN ×5 (00:38→22:46)
[2019-08-17] MEDS: OXYCODONE/ACETAMINOPHEN 10-325 TAB PO PRN ×3 (02:31→18:53)
[2019-08-17] MEDS: ACETAMINOPHEN 1,000 MG/100 ML VIAL IV SCH (02:32)
--- NOTE | 2019-08-17 07:15 | XRay Report ---
XR chest 1V portable CLINICAL HISTORY: bleb stapling COMPARISON STUDY: Chest CT August 10, 2019. Chest radiograph August 16, 2019. FINDINGS: Left chest tube is in place. The displaced pleural line is difficult to visualize on this e xam but left apical pneumothorax has increased in size since exam of August 16, 2019. Pleural separ ation now measures 3.7 cm. There is no right pneumothorax. There is mild left upper lung airspace opa city. Surgical staple line within the left upper lobe is noted. IMPRESSION: Left chest tube in place. Mild increase in size of a left apical pneumothorax with pleur al separation of 3.7 cm. Electronically signed by: Addi Gonzalez M.D. 08/17/2019 7:14 AM
[2019-08-17] MEDS: ENOXAPARIN INJ 40 MG/0.4 ML SYR SQ SCH (08:13)
[2019-08-17] MEDS: AMLODIPINE BESYLATE 5 MG TAB PO SCH (08:13)
[2019-08-17] MEDS: GABAPENTIN 600 MG TAB PO SCH ×3 (08:13→21:03)
[2019-08-17] MEDS: DOCUSATE SODIUM 100 MG CAP PO SCH ×2 (08:13→21:03)
[2019-08-17] MEDS: ACETAMINOPHEN 325 MG TAB PO SCH ×2 (10:44→17:14)
[2019-08-17] MEDS: POLYETHYLENE (MIRALAX) 17 GM PACK PO PRN (12:06)
--- NOTE | 2019-08-17 12:42 | Surgery Progress Note ---
Date of Service August 17, 2019 Assessment & Plan (1) Pneumothorax on left: -pt. underwent LVATS with bleb stapling on 08/15/19 -no malignancy noted on surgical path -CXR today shows increase in size of apical pneumothorax -chest tube examined and all connections secure -initially no tidaling noted of fluid in tube and no air leak noted, however after pt. ambulated in hallway tube was re-examined and air leak noted with cough -due to air leak and CXR findings will leave chest tube in with alternating suction/water seal -repeat CXR in am -continue pain control measures -continue to encorage ambulation, coughing, deep breathing, and use of IS -will order miralax due to constipation -lovenox is in place for DVT prevention Subjective Pt. denies SOB. He notes discomfort from chest tube. No chest pain. He is tolerating diet and has been ambulating in hallway. He does notes constipation issues. No N/V. Physical Exam Physical Exam: no crepitus noted in cheat wall, back, or neck Constitutional: well developed and well nourished; no acute distress Respiratory: normal respiratory effort; no respiratory distress and no labored breathing minimal decrease of BS at bases bilateally Cardiovascular: Rate/Rhythm: regular rate and regular rhythm Gastrointestinal (Abdomen): Percussion/Palpation: abdomen nontender Musculoskeletal: no calf tenderness Results & Data Vital Signs (Past 12 Hours) Vital Signs Temp Pulse Pulse Pulse Resp BP BP 08/17/19 12:03 93 H 137/88 08/17/19 11:50 37.6 C H 90 20 99/64 L 08/17/19 07:35 37.4 C 80 16 128/86 08/17/19 04:38 37.0 C 75 16 118/81 08/17/19 00:50 36.5 C 95 H 16 153/94 H Pulse Ox 08/17/19 12:03 08/17/19 11:50 93 08/17/19 07:35 93 08/17/19 04:38 95 08/17/19 00:50 92 PG Care Time/CCT Total # of Minutes Spent Total Time Spent with Patient: Total time spent is greater than 50% in coordination of care (as documented) at patient's floor/unit and/or counseling patient:
[2019-08-18] MEDS: OXYCODONE/ACETAMINOPHEN 10-325 TAB PO PRN ×3 (00:11→10:54)
[2019-08-18] MEDS: ACETAMINOPHEN 325 MG TAB PO SCH ×5 (00:12→23:21)
[2019-08-18 07:10] LABS: Creatinine Clr Calc Pharmacy 124.7 ml/min; Est GFR (African American) 101.1; Est GFR (Non-African American) 87.2
--- NOTE | 2019-08-18 07:37 | XRay Report ---
XR chest 1V portable HISTORY: pneumothorax COMPARISON: Chest 08/17/2019. FINDINGS: Left-sided chest tube remains unchanged in position. Interval decrease in size in the left pneumothorax which now demonstrates a maximal pleural gap of 2.4 cm at the apex. The heart is stable in size. The right lung is clear. No pleural effusions. IMPRESSION: Decrease in size in the small left apical pneumothorax. The left chest tube is unchanged in position. Electronically signed by: Keith Lyons M.D. 08/18/2019 7:36 AM
[2019-08-18] MEDS: MoRPHine SULFATE 2 MG/ML CARP IV PRN ×3 (07:43→20:03)
[2019-08-18] MEDS: GABAPENTIN 600 MG TAB PO SCH ×3 (07:45→21:14)
[2019-08-18] MEDS: AMLODIPINE BESYLATE 5 MG TAB PO SCH (07:45)
[2019-08-18] MEDS: ENOXAPARIN INJ 40 MG/0.4 ML SYR SQ SCH (07:46)
[2019-08-18] MEDS: DOCUSATE SODIUM 100 MG CAP PO SCH ×2 (07:46→21:14)
--- NOTE | 2019-08-18 07:48 | Surgery Progress Note ---
Date of Service August 18, 2019 Assessment & Plan (1) Pneumothorax on left: -pt. underwent LVATS with bleb stapling on 08/15/19 -no malignancy noted on surgical path -CXR today shows decrease in size of apical pneumothorax -chest tube examined and no air leak noted -CT will remain in place today as it would be preferable to have air leak stopped x 24 hours before removing -repeat CXR in am -continue pain control measures -continue ambulation -continue coughing, deep breathing, and use of IS -miralax ordered yesterday and was successful in resolving constipation -lovenox is in place for DVT prevention Subjective Pt. is without SOB. He notes discomfort from chest tube, but it is tolerable. No chest pain. He is tolerating diet and has been ambulating in hallway multiple times each shift. Constipation issues have resolved. No N/V. Physical Exam Constitutional: well developed and well nourished; no acute distress Respiratory: normal respiratory effort; no respiratory distress and no labored breathing Cardiovascular: Rate/Rhythm: regular rate and regular rhythm Gastrointestinal (Abdomen): Percussion/Palpation: abdomen nontender Musculoskeletal: no calf tenderness with squeezing LE bilaterally Results & Data Vital Signs (Past 12 Hours) Vital Signs Temp Pulse Resp BP BP Pulse Ox 08/18/19 07:17 36.8 C 75 17 137/93 95 08/17/19 23:32 36.9 C 79 18 137/93 95 PG Care Time/CCT Total # of Minutes Spent Total Time Spent with Patient: Total time spent is greater than 50% in coordination of care (as documented) at patient's floor/unit and/or counseling patient:
[2019-08-18] MEDS: POLYETHYLENE (MIRALAX) 17 GM PACK PO PRN (13:35)
[2019-08-18] MEDS: OXYCODONE HCL IR 5 MG TAB (IMMEDIATE RELEASE) PO PRN ×2 (16:01→23:20)
[2019-08-19] MEDS: ACETAMINOPHEN 325 MG TAB PO SCH (05:41)
[2019-08-19] MEDS: OXYCODONE HCL IR 5 MG TAB (IMMEDIATE RELEASE) PO PRN (05:41)
--- NOTE | 2019-08-19 07:27 | XRay Report ---
XR chest 1V portable HISTORY: 54 years-old Male pneumothorax follow-up study in a patient with left apical pneumothorax COMPARISON: Chest radiograph 08/18/2019 TECHNIQUE: Portable AP view of the chest FINDINGS: Stable positioning of the left-sided chest tube. Small left apical pneumothorax has slightly decrease d in size, pleural line likely posterior to the posterior left third rib, pleural separation of appro ximately 2.0 cm. Cardiomediastinal and hilar silhouettes are unchanged. Degenerative changes of the s houlders and spine. IMPRESSION: Stable positioning of left-sided chest tube with decreased size of the small left apical pneumothorax. The above report was generated using voice recognition software. It may contain grammatical, syntax o r spelling errors. Electronically signed by: Alcon Nguyễn M.D. 08/19/2019 7:25 AM
--- NOTE | 2019-08-19 08:31 | XRay Report ---
XR chest 1V portable HISTORY: 54 years-old Male tube removal status post removal of left-sided chest tube COMPARISON: Portable AP view of the chest TECHNIQUE: Portable AP view of the chest FINDINGS: Postoperative changes of the left lung apex with tiny left apical pneumothorax, pleural separation of 1.6 cm. Status post removal of the left-sided chest tube. Minimal subcutaneous emphysema about the l ateral left chest wall. Cardiomediastinal and hilar silhouettes are within normal limits. No large pl eural effusion or overt pulmonary edema. No lobar airspace consolidation. Degenerative changes of the shoulders and spine. IMPRESSION: 1. Status post removal of the left-sided chest tube. 2. Postoperative changes of the left lung apex with tiny left apical pneumothorax redemonstrated. The above report was generated using voice recognition software. It may contain grammatical, syntax o r spelling errors. Electronically signed by: Alcon Nguyễn M.D. 08/19/2019 8:30 AM
[2019-08-19] MEDS: MoRPHine SULFATE 2 MG/ML CARP IV PRN (08:51)
[2019-08-19] MEDS: GABAPENTIN 600 MG TAB PO SCH (08:52)
[2019-08-19] MEDS: AMLODIPINE BESYLATE 5 MG TAB PO SCH (08:53)
[2019-08-19] MEDS: ENOXAPARIN INJ 40 MG/0.4 ML SYR SQ SCH (08:53)
[2019-08-19] MEDS: DOCUSATE SODIUM 100 MG CAP PO SCH (08:53)
--- NOTE | 2019-08-20 04:56 | Discharge Summary ---
ADMISSION DIAGNOSIS: Recurrent spontaneous pneumothorax. HOSPITAL COURSE: This is a patient who is well known to Dr. Braga. Approximately 2 years ago, the patient suffered a right spontaneous pneumothorax and he underwent a right video-assisted thoracoscopy with bleb resection. The patient was seen approximately a week prior to the day of admission as he developed some pleuritic chest pain and shortness of breath, was seen in the Emergency Department, and he had a left spontaneous pneumothorax. It was felt he was stable for discharge home for elective definitive surgery. The patient was discharged home from the Emergency Department where he was seen on 08/10/2019. He was brought back into the hospital on 08/15/2019 where he underwent a left video-assisted thoracoscopy with bleb stapling. Surgical pathology was reviewed and was negative for any type of malignancy. During patient's postoperative course, he had a chest tube in place on the left side. It was managed in the appropriate fashion. He was noted to have an intermittent air leak for several days; however, his air leak eventually stopped and his chest x-ray revealed stability of a small apical left pneumothorax. His chest tube was discontinued on day of discharge which is 08/19/2019, which was postoperative day #4. A post-pull chest x-ray revealed the patient had a persistent tiny apical pneumothorax on the left side. The patient was stable following tube removal and was deemed fit for discharge home. The patient was given both written and verbal instructions. He was told that he could remove his dressings in 3 days and then he could shower thereafter, but not take any tub baths. He was encouraged not to drive until seen by Dr. Braga in approximately 1 week and our office will call him for a 1-week appointment. He was instructed to get a chest x-ray 1 hour before his appointment with Dr. Braga. Concerning medications, all of his home medications are the same and unchanged and the patient does take Percocet at home for chronic back pain and he indicated that he had a sufficient supply, so no new prescriptions were given. Again, the patient was discharged home on postoperative day #4 in stable condition on 08/19/2019.
== END 2019-08-19 10:01 | disposition home or self-care (01) | DRG 164 ==
LOC: ASU 12:05 → 3W 16:27

== ENCOUNTER 2024-01-24 06:14 | Inpatient (IN) ==
--- NOTE | 2023-12-30 11:15 | PAT Medication Instructions ---
Medication Instructions Date of Service December 30, 2023 Home Medications Medication Instructions Recorded cyclobenzaprine 10 mg tablet 10 mg PO TID PRN muscle spasm #10 08/12/20 tabs amlodipine 10 mg tablet 10 mg PO QAM #90 tabs 05/25/23 diclofenac sodium 75 mg 75 mg PO BID #60 tabs 09/01/23 tablet,delayed release gabapentin 600 mg tablet 600 mg PO TID cyclobenzaprine 10 mg tablet 10 mg PO TID PRN muscle spasm amlodipine 10 mg tablet 10 mg PO QAM diclofenac sodium 75 mg tablet,delayed release 75 mg PO BID oxycodone-acetaminophen 10 mg-325 mg tablet 1 tab PO UD PRN prn lidocaine HCl 4 %-menthol 1 % topical cream (Icy Hot Max (lidocaine HCl- menthol)) 1 applic topical TID PRN prn lisinopril 20 mg tablet 20 mg PO QAM naproxen sodium 220 mg tablet (Aleve) 220 mg PO Q12H PRN prn ASK your surgeon for instructions naproxen sodium 220 mg tablet (Aleve) 220 mg PO Q12H PRN prn diclofenac sodium 75 mg tablet,delayed release 75 mg PO BID STOP taking 24 hours before surgery lidocaine HCl 4 %-menthol 1 % topical cream (Icy Hot Max (lidocaine HCl- menthol)) 1 applic topical TID PRN prn DO NOT take the morning of surgery lisinopril 20 mg tablet 20 mg PO QAM Take morning of surgery With a small sip of water, OTHERWISE NOTHING TO EAT OR DRINK AFTER MIDNIGHT: gabapentin 600 mg tablet 600 mg PO TID cyclobenzaprine 10 mg tablet 10 mg PO TID PRN muscle spasm (if needed) amlodipine 10 mg tablet 10 mg PO QAM oxycodone-acetaminophen 10 mg-325 mg tablet 1 tab PO UD PRN prn (if needed) Take evening before surgery gabapentin 600 mg tablet 600 mg PO TID cyclobenzaprine 10 mg tablet 10 mg PO TID PRN muscle spasm (if needed) oxycodone-acetaminophen 10 mg-325 mg tablet 1 tab PO UD PRN prn (if needed) Other Notes If you have any questions please call us at [phone] or [phone] or [phone] or [phone]
--- NOTE | 2024-01-03 15:15 | Anesthesiology Consultation ---
Date of Service January 03, 2024 Assessment & Plan (1) Encounter for pre-operative examination: Chart Review Chart Review: Acceptable Risk for Surgery (pending PCP preop office re anemia ) and Patient seen in Pre Admission Testing - Awaiting PCP preop office visit 01/09/24 ([place]) - Per PCP workload message response in regarding to anemia and upcoming surgery 01/04/24= "... will have patient follow-up with the office at his next availability to further evaluate his anemia prior to clearance for surgical intervention." - Patient is NOT an OPJ candidate (lives alone) Per PAT appt on 01/03/24, no recent illness/disease exposures, illness related symptoms, or recent illness/disease positive tests. Will leave to surgeon's discretion if preop Covid testing needed Teaching & Discussion Pre-Anesthesia Teaching/Discussion Notes: Instructed NPO after midnight before surgery,except medications with 15 cc of water. Medication instructions provided according to the PAT guidelines. History Surgery Operation Date: 01/24/24 12:30 Proposed Procedures p Right Total Hip Arthroplasty - Anselmo Orellana MD Height/Weight Height: 6 ft 1 in Weight: 116 kg Allergies Allergy/AdvReac Type Severity Reaction Status Date / Time No Known Allergies Allergy Verified 12/28/23 15:24 Medications Home Medications Medication Instructions Recorded Confirmed Last Taken gabapentin 600 mg tablet 600 mg PO TID 06/27/19 12/28/23 03/16/21 10:00 cyclobenzaprine 10 mg tablet 10 mg PO TID PRN muscle spasm #10 08/12/20 12/28/23 10/22/20 tabs amlodipine 10 mg tablet 10 mg PO QAM #90 tabs 05/25/23 12/28/23 Unknown diclofenac sodium 75 mg 75 mg PO BID #60 tabs 09/01/23 12/28/23 Unknown tablet,delayed release oxycodone-acetaminophen 10 mg-325 1 tab PO UD PRN prn 10/26/23 12/28/23 Unknown mg tablet lidocaine HCl 4 %-menthol 1 % 1 applic topical TID PRN prn 12/28/23 12/28/23 Unknown topical cream (Icy Hot Max (lidocaine HCl-menthol)) lisinopril 20 mg tablet 20 mg PO QAM 12/28/23 12/28/23 Unknown naproxen sodium 220 mg tablet 220 mg PO Q12H PRN prn 12/28/23 12/28/23 Unknown (Aleve) Past Medical History Medical History Avascular necrosis of right femoral head Per PCP records Advanced arthritis to hip per ortho records Benign localized hyperplasia of prostate with urinary obstruction Cervicalgia Diverticular disease No known diverticulitis History of COVID-2020 - no current symptoms Hypertension Lumbar arthropathy Lumbar disc herniation with radiculopathy Obesity (BMI 30-39.9) Pneumothorax on left Aug 2019> unknown cause > saw Dr. Braga Sleep apnea cpap, "uses sometimes" Exercise / Class Metabolic Activity II 4-5 Yardwork/Stairs/Walk up hill (one flight of stairs - no chest pain or SOB ) Past Family History Family History Unknown No pertinent family history Denies family history of Ovarian cancer Prostate cancer Myocardial infarction Breast cancer Colorectal cancer Past Surgical History Surgical History History of back surgery lumbar History of colectomy Due to possible "leak" per patient History of tooth extraction Lung blebs Left Video-Assisted Thoracoscopy with Apical Bleb Resection> 08/2019 S/P knee replacement right Past Anesthesia History No Hx of Anesthesia Complications and No Family Hx of Anesthesia Complications History of PONV No Hx of PONV and No Hx of Motion Sickness Social History Smoking Status: Current every day smoker tobacco type: smokeless tobacco Smoking cigarettes per day: 3 cigarettes per day/40 years Do You Dip or Chew Tobacco: Yes (rare- advised ) Hx Alcohol Use: No Hx Substance Use: No substance use type: does not use Review of Systems Patient denies chest pain, shortness of breath, dyspnea on exertion, reflux, cough, wheezing, palpitations. No hx of seizures, stroke, AL. No hx of blood clots or blood transfusions Physical Exam Vital Signs VITALS BP 137/76 P 77 TEMP 97.8 SP02 98% RESP 16 Constitutional no acute distress ENMT Mouth: no TMJ clicking Thyromental Distance: > or= 3.5 Finger Breadths (3.5) Mallampati Class: I Mouth / Teeth: 2 1. Missing Missing molars and see picture Neck + limited neck extension (mild) Respiratory normal respiratory effort; no respiratory distress Auscultation: lungs clear to auscultation bilaterally; no wheezes Cardiovascular Rate/Rhythm: regular rate and regular rhythm Heart Sounds: no murmur Vessels: no carotid bruit Musculoskeletal Spine: + pain with cervical ROM (mild stiffness ) Extremities: extremities normal to inspection Psychiatric Orientation: alert Lab Results Anesthesia Preop Results Results Anesthesia Widget: 2 WBC 8.51 K/ul (4.8-10.8) 01/03/24 Hgb 11.6 g/dl (14.0-18.0) L 01/03/24 Hct 33.7 % (42.0-52.0) L 01/03/24 Plt 378 K/uL (130-400) 01/03/24 Na 138 mmol/L (136-145) 01/03/24 K 3.9 mmol/L (3.5-5.1) 01/03/24 Cl 104 mmol/L (98-107) 01/03/24 CO2 28 mmol/L (21-32) 01/03/24 BUN 12 mg/dl (6-23) 01/03/24 Creat 0.84 mg/dl (0.6-1.4) 01/03/24 Glucose Level 70 mg/dl (70-99(Fasting)) 01/03/24 PT 11.1 Seconds (9.0-12.0) 01/03/24 PTT 26 Seconds (21-31) 01/03/24 INR 1.0 (0.9-1.1) 01/03/24 Blood Type A Positive 01/03/24 Antibody Screen NEGATIVE 01/03/24 Testing Laboratory Results Mild anemia- workload note sent to PCP Electrocardiogram Date: 01/03/24 Findings: + NSR @ (73bpm) Normal EKG per cardio Chest X-Ray Date: 01/03/24 FINDINGS: Lung volumes are normal. Lungs are clear. There is no pneumothorax or pleural effusion. Cardiac size is normal. Mediastinal contours are normal. There is no evidence for pulmonary edema. IMPRESSION: No acute cardiopulmonary findings.
[2024-01-24] MEDS ORDERED: BUPIVACAINE 0.5 % 5 MG/1 ML PF 10ML VIAL ONE (06:26)
--- NOTE | 2024-01-24 06:48 | History & Physical Bridge Note ---
Date of Service January 24, 2024 History & Physical Bridge Note I have examined the patient, reviewed the History & Physical and in the interval since the performance of the History & Physical I have noted the following changes of clinical significance: no changes noted
[2024-01-24] MEDS ORDERED: MIDAZOLAM HCL 1 MG/ML 2ML VIAL ONE (07:07)
[2024-01-24] MEDS: ACETAMINOPHEN 500 MG TAB PO SCH ×2 (07:13→14:43)
[2024-01-24] MEDS: Scopolamine 1 MG TDSY TD SCH (07:14)
[2024-01-24] MEDS: dexAMETHasone**PF** 10 MG/ML VIAL IV SCH (07:14)
[2024-01-24] MEDS: FAMOTIDINE 20 MG TAB PO SCH (07:14)
[2024-01-24] MEDS: CeleBREX 200 MG CAP PO SCH (07:14)
[2024-01-24] MEDS: METOCLOPRAMIDE HCL 10 MG TABLET PO SCH (07:14)
[2024-01-24] MEDS: LR 500ML BOLUS, THEN 15ML/HR IV SCH (07:15)
[2024-01-24] MEDS: LR 60ML/HR IV SCH (07:15)
[2024-01-24] MEDS ORDERED: MoRPHine SULFATE PF 1 MG/ML 10 ML AMP/VIAL ONE (07:27)
[2024-01-24] MEDS: TRANEXAMIC ACID 1,000 MG **IV Pre-op IV SCH (08:24)
[2024-01-24] MEDS ORDERED: ONDANSETRON INJ 2 MG/ML 2 ML VIAL IV PRN ×2 (08:40→11:29)
[2024-01-24] MEDS ORDERED: NALBUPHINE HCL 5 MG in SYRINGE 0 ML IV PRN (08:40)
[2024-01-24] MEDS ORDERED: diphenhydrAMINE 50 MG/ML VIAL IV PRN (08:40)
[2024-01-24] MEDS ORDERED: ePHEDrine sulfate 50 MG/ML AMP IV PRN (08:40)
[2024-01-24] MEDS ORDERED: LACTATED RINGER'S 500 ML IV PRN (08:40)
[2024-01-24] MEDS ORDERED: NALOXONE HCL 0.4 MG/1 ML VIAL/CARP IV PRN ×2 (08:40→11:29)
[2024-01-24] MEDS ORDERED: NALOXONE HCL 0.08 MG in SYRINGE 1.8 ML IV PRN (08:40)
[2024-01-24] MEDS ORDERED: NALOXONE HCL 1 MG in SODIUM CHLORIDE 0.9% 1,000 ML IV PRN (08:40)
[2024-01-24] MEDS ORDERED: HYDROmorphone INJ 0.5 MG/0.5 ML SYR IV PRN ×2 (08:40→11:29)
[2024-01-24] MEDS ORDERED: DC INTRASPINAL MORPHINE SCH (08:45)
[2024-01-24] MEDS ORDERED: NO NARCOTICS OR SEDATIVES SCH (08:45)
[2024-01-24] MEDS: ceFAZolin 2000MG 2,000 MG/15 ML SYR IV SCH ×2 (08:51→16:56)
[2024-01-24] MEDS ORDERED: PROPOFOL IV EMULSION 10 MG/ML 20 ML VIAL IV ONE ×5 (08:56→09:38)
[2024-01-24] MEDS: BUPIVACAINE/EPINEPHRINE 0.5% MPF 1:200,000 30 ML VIAL ONE (09:36)
--- NOTE | 2024-01-24 10:40 | Operative Report ---
PG Post Operative Report Pre & Post Diagnosis Operation Date: 01/24/24 08:50 Pre-Op Diagnosis: Right Hip Advanced Degenerative Joint Disease Post-Op Diagnosis: Right Hip Advanced Degenerative Joint Disease I identified the patient and participated in the time-out.: Yes Procedure Operation Date: 01/24/24 08:50 Actual Procedures p Right Total Hip Arthroplasty, Uncemented(Right) - Anselmo Orellana MD Surgeon Anselmo Orellana MD Door Fitter Alvin Mendoza PA-C Estimated Blood Loss 200 Findings Consistent with Post-Op Diagnosis Operative findings reveal advanced right hip DJD. He had erosive disease of his right hip. He had protrusio of the acetabulum. Large osteophytes around the acetabular rim. Very stiff hip preoperatively. Very dense bone. Specimens Right femoral head sent for pathology. Anesthesia Type Spinal MAC Complications none Disposition Accompanied Patient To Recovery: No Indications Patient is a 58-year-old gentleman whose had a several year history of increasing right hip pain discomforts got markedly worse over the past year. X- rays show advanced hip arthritis which has progressed. He had acetabular protrusio. He failed conservative measures. Elected proceed with surgical management. We did do an infectious workup which was negative. Description of Procedure Operative implants consists of: 1. Biomet G7 size 60 mm acetabular shell. 2. 6.5 cancellous acetabular screws 135 mm in length by 30 mm length. 3. Wayne microgrinder operator. 4. Highly cross-linked polyethylene liner with a 60 mm outer diameter, 40 mm diam with a ha placed inferior and posterior. 5. DePuy Corail size 12 KLA femoral stem. 6. +5/40 mm ceramic articular bowl. The patient was taken the op room, identified, placed on the operating table in the supine position but all contact areas were appropriately padded. IV antibiotics by the anesthesia team. A spinal anesthetic at the implement holding area. Patient then placed in the left lateral decubitus position. An axillary roll was placed. A [facility] position is used for positioning. The right hip and leg were then prepped and draped in usual sterile fashion. A posterior lateral approach the right hip was then performed to a curvilinear incision centered over the greater trochanter. Sharp dissection Through subcutaneous tissue down to level of the IT band gluteal fascia with the IT band gluteal fascia incised longitudinally in line with skin incision. The underlying greater and bursa was excised. The piriformis and extra rotators as well as the posterior hip joint capsule then released from the posterior aspect of the hip joint. Great care was taken throughout the procedure to protect sciatic nerve at all times. I attempted to dislocate the hip but he he had protrusio of the acetabulum and I was concerned that I would more likely a fracture of the femur. Therefore I cut the femoral neck in situ. I then retracted the femur anteriorly. Even after doing this I could not get the femoral head out of the acetabulum as the entrance to the acetabular was much smaller than the femoral head. I had to use a saw to cut the femoral head into 2 pieces. I then removed it in piecemeal fashion. I then excised some of the osteophytes around the acetabulum. I then reamed the acetabulum again with a size 49 and progressing up to a 59. I reamed a little bit with a 60 reamer. I did not do much medialization due to the protrusio acetabulum. We did get good cancellous bone bleeding. A 60 mm cup was then placed in about 40 degrees lateral opening and 20 degrees of anteversion. I did fix it with 2 screws. I then removed some anterior osteophytes. A trial liner was placed. Attention drawn the femur. The proximal femur was entered with a cookie cutter followed by canal finder. I then broached the proximal femur. We broached up to a size 12. He got excellent fit. He had extremely good cancellous bone support. We then trialed the hip and the +5 articular ball seem to recreate leg lengths equal. There was a little bit of soft tissue laxity but elected to accept this to not lengthen him. We did elect to place a hooded inferior and posterior to maximize his stability and placed a 40 mm head to maximize his stability. All trial implants were removed. Wayne hole limiter was placed. Highly cross- linked polyethylene liner was placed. I did use a hooded liner in place at inferior and posterior to maximize the stability in flexion. A size 12 KLA femoral stem was impacted in position. AL +5/40 mm ceramic articular ball was placed. Hip was located and once again found to be stable. Attention turned toward closing. Wounds irrigated copious pulsatile lavage solution. I did inject locally with 60 cc of half percent Marcaine with epinephrine. The posterior capsule and external rotators were then repaired to drawls in the posterior trochanter with #2 Tycron suture. The IT band gluteal fascia were then closed in 1 PDS suture running fashion for the subcutaneous tissues then closed with 2 layers with a deep layer none 1 Vicryl suture subcutaneous tissues with 2-0 Dexon suture in a buried interrupted fashion. Skin was closed skin nadya. I did place a Prevena VAC dressing. The patient was into transferred to the recovery in stable condition. The patient tolerated procedure well there are no complications. Alvin Mendoza, my physician community program assistant, was present for the entire procedure. His assistance was essential and required for appropriate patient positioning, prepping and draping, surgical exposure, performing the technical details of the operation, placement the implants, closure of the wound, and placement of the sterile bandage. I attest to the content of the Intraoperative Record and any orders documented therein. Any exceptions are noted below.
--- NOTE | 2024-01-24 11:25 | XRay Report ---
AP PELVIS, CROSSTABLE LATERAL RIGHT HIP History: Right total hip arthroplasty. Degenerative arthritis. Postop. FINDINGS: The patient is status post a right total hip arthroplasty. The hardware is intact. No fract ure or dislocation. Skin nadya are in place. IMPRESSION: Right total hip arthroplasty. No evidence for hardware complication ACT 112: Negative or not required by law. Electronically signed by: Keith Lyons M.D. 01/24/2024 11:24 AM
[2024-01-24] MEDS: MoRPHine SULFATE PF 1 MG/ML 10 ML AMP/VIAL INT SPINAL ONE (11:28)
[2024-01-24] MEDS ORDERED: diphenhydrAMINE Capsule 25 MG CAP PO PRN (11:29)
[2024-01-24] MEDS ORDERED: oxyCODONE HCL IR 5 MG TAB (IMMEDIATE RELEASE) PO PRN (11:29)
[2024-01-24] MEDS ORDERED: CYCLOBENZAPRINE HCL 10 MG TAB PO PRN (11:29)
[2024-01-24] MEDS ORDERED: ALUMINUM/MAGNESIUM SUSP 30 ML UDC PO PRN (11:29)
[2024-01-24] MEDS ORDERED: [UNRECOGNIZED DRUG - OTHER] TOP PRN (11:29)
[2024-01-24] MEDS ORDERED: bisacodyL 10 MG SUPP PR PRN (11:29)
[2024-01-24] MEDS: SODIUM CHLORIDE 0.9% 1,000 ML IV SCH ×2 (11:29→12:03)
[2024-01-24] MEDS ORDERED: METOCLOPRAMIDE HCL INJ 5 MG/ML 2 ML VIAL IV PRN (11:29)
[2024-01-24] MEDS ORDERED: MAGNESIUM HYDROXIDE SUSP 30 ML UDC PO PRN (11:29)
--- NOTE | 2024-01-24 11:37 | Anesthesiology Progress Note ---
Date of Service January 24, 2024 Anesthesia Post Procedure Vital Signs Vital Signs: Temp Pulse Pulse Resp BP Pulse Ox O2 Del Method 01/24/24 11:10 97.5 F L 62 14 119/79 99 Room Air 01/24/24 11:00 65 15 127/68 100 Room Air 01/24/24 10:50 73 15 122/69 99 Room Air 01/24/24 10:40 64 17 111/84 97 Room Air 01/24/24 10:30 80 16 111/64 100 Oxymask 01/24/24 10:24 97.2 F L 87 18 118/76 100 Oxymask 01/24/24 06:50 98.2 F 70 20 137/90 98 Room Air O2 Flow Rate 01/24/24 11:10 01/24/24 11:00 01/24/24 10:50 01/24/24 10:40 01/24/24 10:30 5 01/24/24 10:24 5 01/24/24 06:50 Pain Intensity Right Hip: Pain Intensity: 5 Transfer of Care Handoff Completed per policy Notes Mental Status: alert / awake / arousable and participated in evaluation Patient Amnestic to Procedure: Yes Nausea / Vomiting: adequately controlled Pain: adequately controlled Airway Patency, RR, SpO2: stable & adequate BP & HR: stable & adequate Hydration State: stable & adequate Neuraxial Anesthesia: was administered and sensory block is resolving Anesthetic Complications: no major complications apparent and Pt Satisfied with anesthetic care
[2024-01-24] MEDS ORDERED: GABAPENTIN 600 MG TAB PO SCH (14:00)
[2024-01-24] MEDS: Scopolamine CHECK PATCH PLACEMENT SCH (16:18)
[2024-01-24] MEDS: TRANEXAMIC ACID / 0.7% NACL 1,000 MG/100 ML BAG IV SCH (16:18)
[2024-01-24] MEDS: ASCORBIC ACID 500 MG TAB PO SCH (16:21)
[2024-01-24] MEDS: KETOROLAC 30 MG/ML VIAL IV SCH (18:14)
[2024-01-24] MEDS: GABAPENTIN 600 MG TAB PO STA (18:57)
[2024-01-24] MEDS: SENNA 8.6 MG TAB PO SCH (20:41)
[2024-01-24] MEDS: DOCUSATE SODIUM 100 MG CAP PO SCH (20:41)
[2024-01-24] MEDS: ASPIRIN 81 MG ECTAB PO SCH (20:41)
[2024-01-24] MEDS ORDERED: SENNA 8.6 MG TAB PO SCH (21:00)
[2024-01-25] MEDS ORDERED: HYDROmorphone INJ 0.5 MG/0.5 ML SYR IV PRN (02:40)
[2024-01-25] MEDS ORDERED: CYCLOBENZAPRINE HCL 10 MG TAB PO PRN (02:40)
[2024-01-25] MEDS ORDERED: ONDANSETRON INJ 2 MG/ML 2 ML VIAL IV PRN (02:40)
[2024-01-25] MEDS ORDERED: METOCLOPRAMIDE HCL INJ 5 MG/ML 2 ML VIAL IV PRN (02:40)
[2024-01-25] MEDS ORDERED: diphenhydrAMINE Capsule 25 MG CAP PO PRN (02:40)
[2024-01-25 08:06] LABS: Basophils # (auto) 0.02 K/uL (0.00-0.20); Basophils % (auto) 0.2 %; Eosinophils # (auto) 0.06 K/uL (0.00-0.50); Eosinophils % (auto) 0.5 %; Hematocrit (blood only) 32.6 % (42.0-52.0); Immature Granulocytes # (auto) 0.04 K/uL (0.01-0.20); Immature Granulocytes % (auto) 0.3 %; Lymphocytes # (auto) 2.44 K/uL (1.20-3.40); Lymphocytes % (auto) 19.9 %; Mean Corpuscular Hemoglobin 28.6 pg (25.0-34.0); Mean Corpuscular Hgb Conc 33.7 g/dL (32.0-36.0); Mean Corpuscular Volume 84.7 fL (80.0-100.0); Mean Platelet Volume 9.3 fL (9.4-12.4); Monocytes # (auto) 0.76 K/uL (0.11-0.59); Monocytes % (auto) 6.2 %; Neutrophils # (auto) 8.97 K/uL (1.40-6.50); Neutrophils % (auto) 72.9 %; Platelet Count 278 K/uL (130-400); RDW Coefficient of Variation 13.9 % (11.5-14.5); RDW Standard Deviation 42.7 fL (36.4-46.3); Red Blood Count 3.85 M/uL (4.70-6.10); White Blood Count 12.29 K/ul (4.8-10.8)
[2024-01-25 08:27] LABS: BUN Creatinine Ratio 16.7 (10-20); Calcium 8.7 mg/dl (8.6-10.3); Est GFR (Non-African American) 100.9 ml/min
[2024-01-25] MEDS: oxyCODONE HCL IR 5 MG TAB (IMMEDIATE RELEASE) PO PRN (08:29)
[2024-01-25] MEDS: dexAMETHasone 10 MG in SYRINGE 0 ML IV SCH (08:30)
[2024-01-25] MEDS: GABAPENTIN 600 MG TAB PO SCH (08:32)
[2024-01-25] MEDS: amLODIPine BESYLATE 5 MG TAB PO SCH (08:33)
[2024-01-25] MEDS: MULTIVITAMIN TAB PO SCH (08:33)
[2024-01-25] MEDS: lisinopril 20 MG TAB PO SCH (08:33)
[2024-01-25] MEDS: TAMSULOSIN HCL 0.4 MG CAP PO SCH (08:35)
--- NOTE | 2024-01-25 09:50 | Orthopedic Progress Note ---
Date of Service January 25, 2024 Assessment & Plan (1) Status post right hip replacement: Overall, he is doing quite well today with good pain control to the right hip. He participated well with physical therapy today work on ambulation and range of motion exercises. He is on aspirin for DVT prophylaxis. He does live alone and is interested in going to a rehabilitation center upon discharge. Case management is on board. Hopefully pending insurance authorization today, he can be discharged. He is orthopedically stable for discharge once a place and bed is available for him. He will follow-up with Dr. Brown in 2 weeks for postoperative management. Duglas Yu was seen and evaluated this morning resting comfortably no apparent distress. He notes his pain is well-controlled to the right hip. He would just got finished with physical therapy upon my arrival with him today in which they state that he was able to ambulate and do range of motion exercises quite well. He has been up and out of bed prior to their visit with no significant issues. He denies any other concerns today. Review of Systems All systems reviewed & are unremarkable except as noted in HPI & below. Physical Exam . On physical examination of the right hip, dressings are clean, dry, intact. His legs on full extension. He has active plantarflexion dorsiflexion of the right ankle. +2 DP and PT pulse. Less than 2-second capillary refill. Normal sensation. Neurovascular intact. Results & Data Results & Data Laboratory Results . Diagnostic Findings . Postoperative x-rays of the right hip show prosthesis to be in anatomical alignment with no signs of fracture complication or loosening. PG Care Time/CCT Total # of Minutes Spent Total Time Spent with Patient: Total time spent is greater than 50% in coordination of care (as documented) at patient's floor/unit and/or counseling patient: Coding Level of Care Code 56021 Post Operative Follow-Up Diagnoses Status post right hip replacement Z96.641
--- NOTE | 2024-01-26 10:24 | Orthopedic Progress Note ---
Date of Service January 26, 2024 Assessment & Plan (1) Status post right hip replacement: Overall, he is doing quite well today with good pain control to the right hip. He participated well with physical therapy working on ambulation and range of motion exercises. He is on aspirin for DVT prophylaxis. He does live alone and is interested in going to a rehabilitation center upon discharge. Case management is on board. Anticipated discharge today to [facility]. He is orthopedically stable for discharge once a place and bed is available for him. He will follow-up with Dr. Orellana in 2 weeks for postoperative management. Duglas Yu was seen and evaluated this morning resting comfortably no apparent distress. He notes his pain is well-controlled to the right hip. He has been working with physical therapy working on ambulation and range of motion exercises while inpatient. He has been up and out of bed with no significant issues. He denies any other concerns today. Review of Systems All systems reviewed & are unremarkable except as noted in HPI & below. Physical Exam .On physical examination of the right hip, dressings are clean, dry, intact. His legs on full extension. He has active plantarflexion dorsiflexion of the right ankle. +2 DP and PT pulse. Less than 2-second capillary refill. Normal sensation. Neurovascular intact. Results & Data Results & Data Laboratory Results . Diagnostic Findings . PG Care Time/CCT Total # of Minutes Spent Total Time Spent with Patient: Total time spent is greater than 50% in coordination of care (as documented) at patient's floor/unit and/or counseling patient: Coding Level of Care Code 52890 Post Operative Follow-Up Diagnoses Status post right hip replacement Z96.641
--- NOTE | 2024-01-26 10:26 | Discharge Summary ---
Date of Service January 26, 2024 Principal Diagnosis Same as "Discharge Diagnosis" noted below under Discharge Instructions. Discharge Exam .On physical examination of the right hip, dressings are clean, dry, intact. His legs on full extension. He has active plantarflexion dorsiflexion of the right ankle. +2 DP and PT pulse. Less than 2-second capillary refill. Normal sensation. Neurovascular intact. Discharge Data Procedures Performed Operation Date: 01/24/24 08:50 Actual Procedures p Right Total Hip Arthroplasty, Uncemented(Right) - Anselmo Orellana MD Hospital Course (1) Status post right hip replacement: On January 24, 2024 Aimee arrived at [facility] underwent a right total hip arthroplasty performed by Dr. Orellana with no complications. He had a spinal anesthetic. Postoperatively, he was started on aspirin for DVT prophylaxis and transferred to the general orthopedic floor in stable condition. His hospital course was uneventful. On postoperative day #1, his vital signs are stable and his pain is well-controlled. He participated well with physical therapy working on ambulation and range of motion exercises. He does live alone and did not have sufficient help at home in which he requested to be discharged to a rehabilitation hospital upon discharge. Case management was brought on board. No other significant events occurred on this day. On postoperative day #2, his vital signs were stable and his pain was well-controlled. He participated again with physical therapy working on ambulation and range of motion exercises. He was then discharged to a rehabilitation hospital in stable condition. He will follow-up with Dr. Orellana in 2 weeks for postoperative management. PG Care Time/CCT Total # of Minutes Spent Total Time Spent with Patient: Total time spent is greater than 50% in coordination of care (as documented) at patient's floor/unit and/or counseling patient: Discharge Plan Discharge Items Patient Disposition: Transfer Inpatient Rehab Fac Reason For Visit: POST SURGICAL CARE Discharge Diagnosis: Right Hip Replacement Activity: Per Instructions section Activity Comment: Follow/Obey hip precautions at all times. Weightbearing: Full weightbearing Weightbearing Comment: Weightbear as tolerated obeying hip precautions at all times. Non-emergency contact: Surgeon Call non-emergency contact if: you have any medication questions Follow-up/Referrals: Thomas Lerner CRNP [Primary Care Provider] - Diet: Regular Addtl Attending Provider Instructions: ACTIVITY RECOMMENDATIONS: Physical Therapy: * Aggressive physical therapy is not usually needed. You will learn to take care of yourself safely and walk. * Follow the "Hip Precautions Instructions." * In some cases, the social media marketer at the hospital will arrange to have a therapist come to your house for the first couple of weeks to help you learn these skills. * You need to practice on your own or with the help of a family member as needed. * When you learn these skills, most of the therapy can be done on your own. Home Exercise: * You were shown a series of exercises in the hospital. Do these exercises three to four times each day including the exercises you were shown in physical therapy. Walking: * Get up and walk several times each day. For the first four weeks, try not to stand or walk for more than one hour at a time. If you do stand or walk for more than one hour, you will not hurt anything, but your leg will likely swell. * As you feel comfortable, you may change from the walker or crutches to a cane and then to independent walking. MEDICATIONS: New Medicine: * You will likely be taking one or more of these medicines: 1. Oxycodone - Take, as directed, when you need it, every six hours to control your pain. 2. Aspirin - Thins your blood to lessen the chance of forming a blood clot. * The most common side effects of pain medicine and iron are nausea and constipation. If nausea or constipation is too much of a problem or if you have any questions about your new medicines or doses, call [facility] at . We will try to help you manage these issues. "VERY IMPORTANT TO READ AND REVIEW" Pain: * The immediate post-operative period after hip replacement surgery is often quite painful. * You are given a prescription for pain medicine. You should take it, as directed, when you need it, especially before physical therapy and before going to bed. Pain that interferes with sleep is very common and can last several months. * You will likely need pain medicine for the first two to four weeks. It will not stop all of the pain. The pain will lessen and as you feel better, you may change to milder pain medicine such as Tylenol. * The most common side effects of pain medicine are nausea and constipation, so don't take more than you need. SPECIAL CARE INSTRUCTIONS: TEDs/Elastic Stockings: * The white elastic stockings help limit swelling and prevent blood clots from forming in your legs. The more you wear them, the more they work. * Wear them for six weeks. Incision Site Care: * Remove dressing postoperative day 2 and then shower. Keep direct shower pressure off the incision site. * After showering, cover nadya with dry gauze and change daily or more frequently if the dressing is getting saturated with drainage. * May completely stop using bandage if wound is dry and no drainage * [place] are removed between 2 and 3 weeks post-op. If your follow-up appointment is made before 2 weeks, please have your appointment re- scheduled. It is too early to remove the nadya. Prevention of Infection: * Take antibiotics one hour before any dental cleaning, dental work, urological procedure, gastrointestinal procedure or any invasive surgery in order to prevent your new joint from getting infected. * You may get the antibiotics from the doctor performing the procedure or you may call our office at before and we will call in a prescription to the pharmacy of your choice. Things to Watch For: * Drainage from the incision site that occurs more than one week after your surgery. * Severely increased leg pain or swelling. * Increased redness at the incision site. * Fever above 102 degrees Fahrenheit. * Unusual chest pain or shortness of breath. * Unusual pain or burning with urination. Call [facility] at with any of the above problems or if you have any questions about your medicines or recovery. FOLLOW UP VISIT: Make an appointment to see your doctor for approximately two weeks after surgery for a progress check and staple removal by calling the office at . Pending Studies at Discharge: No Stand-Alone Forms: [facility] Sk[facility] Patient informed of condition?: Yes DNR: No Discharge Level of Care: Acute rehab Communicable Disease: No Discharge Prognosis: Improving Lines: None Urinary Catheter: No Medications and DC Order Prescriptions: Continued amlodipine 10 mg tablet 10 mg PO QAM Qty: 90 1RF (DME) Wheeled Walker Misc See Rx Instructions .MEDSUPPLY Qty: 1 0RF Rx Instructions: As directed oxycodone 5 mg tablet 5 - 10 mg PO Q6 PRN (Reason: pain) Qty: 40 0RF Rx Instructions: Take as needed for pain ondansetron 4 mg tablet,disintegrating 4 mg PO Q8 PRN (Reason: nausea) Qty: 20 1RF Rx Instructions: Take as needed for nausea ketorolac 10 mg tablet 10 mg PO Q6 5 Days Qty: 20 0RF Rx Instructions: Take 4 times per day with food for 5 days to lessen pain and swelling. sennosides [Senokot] 8.6 mg tablet 8.6 mg PO BID 14 Days Qty: 28 0RF Rx Instructions: Take two times a day to prevent/treat constipation acetaminophen [Tylenol Extra Strength] 500 mg tablet 1,000 mg PO TID 30 Days Qty: 180 0RF Rx Instructions: Take 3 times per day to lessen pain. aspirin [Diaz Low Dose Aspirin] 81 mg tablet,delayed release (DR/EC) 81 mg PO BID 45 Days Qty: 90 0RF Rx Instructions: Take to prevent blood clots. cefadroxil 500 mg capsule 500 mg PO BID 7 Days Qty: 14 0RF Rx Instructions: Take 1 cap twice a day to prevent infection tamsulosin [Flomax] 0.4 mg capsule 0.4 mg PO DAILY Qty: 7 0RF Rx Instructions: Begin night BEFORE surgery to prevent urinary retention gabapentin 600 mg tablet 600 mg PO TID cyclobenzaprine 10 mg tablet 10 mg PO TID PRN (Reason: muscle spasm) Qty: 10 0RF lisinopril 20 mg tablet 20 mg PO QAM Icy Hot Max (lido HCl-menthol) 4-1 % Cream 1 applic TOPICAL TID PRN (Reason: prn) Discontinued diclofenac sodium 75 mg tablet,delayed release (DR/EC) 75 mg PO BID Qty: 60 5RF oxycodone-acetaminophen 10-325 mg tablet 1 tab PO UD PRN (Reason: prn) Patient Comments: 5 times per day as needed for pain naproxen sodium [Aleve] 220 mg Tablet 220 mg PO Q12H PRN (Reason: prn) Discharge Orders: Discharge Order (Routine); Ordered 01/26/24 Ordered By: Henrik Guardado Admission Data Admit Date/Time: 01/24/24 10:33 Attending Provider: Anselmo Orellana Admit Provider: Anselmo Orellana Primary Care Provider: Thomas Lerner Other Providers: Tera Wright [facility]
== END 2024-01-26 13:35 | DRG 470 ==
LOC: ASU 06:14 → 3W 10:33